=== PATIENT | male | born 1950 | race American Indian/Alaskan Native ===

== ENCOUNTER 2017-02-08 09:32 | Observation (INO) | payer MEDICARE, MEDICAID ==
[2017-02-08 10:06] VITALS: BMI 29.1
[2017-02-08] MEDS ORDERED: SENSORCAINE 0.5% W/EPINEPHRINE 50ML MDV IJ ONE (12:46)
[2017-02-08] MEDS ORDERED: EPINEPHrine 1 mg/ml (1:1000) Inj ONE (12:46)
[2017-02-08] MEDS ORDERED: Bupivacaine 0.5% Inj(30mL) ONE (12:47)
[2017-02-08] MEDS ORDERED: ePHEDrine 50 mg/ml Inj ONE (13:03)
[2017-02-08] MEDS ORDERED: Rocuronium 10 mg/ml (5 ml) ONE (13:03)
[2017-02-08] MEDS ORDERED: Propofol 10 mg/ml Inj (20 ML) ONE (13:03)
[2017-02-08] MEDS ORDERED: Succinylcholine 200 mg/10 ml Inj IV ONE (13:03)
[2017-02-08] MEDS ORDERED: Lactated Ringer's 1,000 ML IV ONE (15:15)
[2017-02-08] MEDS ORDERED: Bupivacaine HCl 0.25% PF (30 ml) Inj ONE (16:00)
[2017-02-08] MEDS ORDERED: Lidocaine Hydrochloride 5 ML INJ ONE (16:39)
[2017-02-08] MEDS ORDERED: HYDROmorphone 0.5 mg/0.5 ml ISec ONE ×2 (16:41→16:53)
[2017-02-08] MEDS: HYDROmorphone 0.5 mg/0.5 ml ISec IVP PRN ×2 (16:41→16:47)
[2017-02-08] MEDS ORDERED: HYDROmorphone 0.5 mg/0.5 ml ISec IVP ONE (16:55)
[2017-02-08] MEDS ORDERED: HYDROmorphone 0.5 mg/0.5 ml ISec IVP STA (17:25)
[2017-02-08] MEDS ORDERED: HYDROmorphone 0.5 mg/0.5 ml ISec IVP PRN ×2 (17:31→19:49)
--- NOTE | 2017-02-08 17:34 | PCM.ANESB4 ---
Infraclavicular Block - Femoral Nerve Block Date of Procedure: 02/08/17 Anesthesiologist: any Pre-Procedure Diagnosis: right triceps tendon tear Post-Procedure Diagnosis: same Procedure Performed: Brachial Plexus at the Infraclavicular area Right - Procedure Infraclavicular Block: The procedure was explained to the patient that it is for the post-operative pain management. Consent was obtained after a thorough discussion with the patient regarding the benefits and possible complications of local anesthetic block of the brachial plexus at the infraclavicular area. The patient was brought to the operating room and standard monitors were applied. Time-out was held with the circulating nurse to confirm the correct surgery and the appropriate block. After applying oxygen by nasal cannula and administering IV Sedation, patient's head was gently rotated away from the operative __right _ shoulder and the area medial to the coracoid process and inferior to the clavicle was carefully palpated. The ultrasound transducer was then applied to the skin in the transverse plane and the brachial plexus was visualized surrounding the axillary artery and deep to the pectoralis major and minor muscles. After thorough identification, this area was prepped with Betadine solution three times and 1 % Lidocaine was injected subcutaneously for topical anesthesia. At this point, a #21 gauge Stimuplex 4-inch needle was inserted cephalad to the ultrasound transducer and inferior to the clavicle in-plane towards the posterior aspect of the axillary artery. Needle advancement was performed carefully under ultrasound visualization. Nerve stimulator was used and twitch of the affected extremity including fingers, hand, wrist and elbow was obtained at current of 0.4 MA. After repeated negative aspiration, __25___cc of ____ 0.25_% __bupivicaine was injected and this was followed with _ cc of % . Under ultrasound guidance the local anesthetics were observed surrounding the cords of the brachial plexus. The needle was removed intact and sterile dressing was applied. The patient had stable vital signs, was conscious and in no apparent distress. The patient tolerated the infraclavicular block of the brachial plexus well with stable vital signs was prepared for subsequent surgery.
[2017-02-08] MEDS ORDERED: Oxycodone/Acetaminophen 5/325 mg Tab PO PRN (17:56)
[2017-02-08] MEDS ORDERED: [UNRECOGNIZED DRUG - OTHER] SCH (18:00)
--- NOTE | 2017-02-08 18:21 | CP.PCM.HP ---
History of Present Illness - History of Present Illness History of Present Illness: CC: s/p shoulder surgery HPI: 66 year old male PMH significant for HTN, CKD, glaucoma, hyperlipidemia, bph, questionable congestive heart failure (per medications), alcohol abuse, presents today s/p elbow tricep repair and ORIF olecranon. Patient did not have support at home tonight, so will stay overnight for safe discharge in AM. ROS: per HPI, all other systems reviewed and negative by me PMD: charted as Dr. hCyna Perdomo, however this office does not have any records of this patient. PMH: HTN, CKD, glaucoma, hyperlipidemia, questionable congestive heart failure ( per medications), alcohol abuse PSH: cystoscopy FH: DENIES SH: Drinks every night, unclear how much, last drink less than 12 hours ago, per patient. Denies tobacco and drugs MEDS: as below and reviewed ALLERGIES: NKDA EXAM: Vitals stable and reviewed Temp Pulse Resp BP Pulse Ox 96.0 F L 67 18 160/90 H 100 02/08/17 18:05 02/08/17 18:05 02/08/17 18:05 02/08/17 18:05 02/08/17 18:05 GEN: WDWN, alert, cooperative HEENT: NCAT, PERRL, EOMI Neck: supple, no lymphadenopathy CARDIO: +S1S2, RRR, NO M/R/G LUNG: CTAB, NO W/R/R ABD: soft, NT, ND, no masses, no HSM EXT: no edema, pedal pulses. Shoulder in dressings cdi. Neuro: AAOx3, Strength equal, bilateral UE/LE Psych: normal mood, normal affect LABS as below and reviewed ASSESSMENT AND PLAN: 66 year old male PMH significant for HTN, CKD, glaucoma, hyperlipidemia, bph, questionable congestive heart failure (per medications), alcohol abuse, presents today s/p elbow tricep repair and ORIF olecranon. Patient did not have support at home tonight, so will stay overnight for safe discharge in AM. s/p tricep repair/ORIF pain control, percocet 1 tab PRN zofran for nausea and emesis dressings per ortho recommendations HTN CHF? Hyperlipidemia CKD stable BPH stable Glaucoma Will continue all home meds as below for above medical issues coreg 6.25 mg po q12 lasix 40 mg po daily lipitor 20 mg po daily norvasc 10 mg po daily glaucoma drops as ordered lisinopril 20 mg po BID per home med dosage and frequency ETOH abuse admits to daily use, wine at night, per chart documentation, also drinks hard liquor thiamine, folic acid, as well as ativan PO 1 mg for any withdrawal symptoms DVT ppx hold AC in light of recent surgery SCDs Present on Admission - Present on Admission Any Indicators Present on Admission: No Past Patient History - Past Medical History & Family History Past Medical History?: Yes - Past Social History Smoking Status: Former Smoker - CARDIAC Hx Cardiac Disorders: Yes Hx Hypercholesterolemia: Yes Hx Hypertension: Yes Hx Mitral Valve Prolapse: Yes - PULMONARY Hx Respiratory Disorders: No - NEUROLOGICAL Hx Neurological Disorder: No - HEENT Hx HEENT Problems: Yes Hx Glaucoma: Yes (bilateral) - RENAL Hx Chronic Kidney Disease: Yes - ENDOCRINE/METABOLIC Hx Endocrine Disorders: No - HEMATOLOGICAL/ONCOLOGICAL Hx Blood Disorders: Yes Hx Blood Transfusions: No Hx Hepatitis C: Yes Other/Comment: ETOH ABUSE;HX OF DRUG ABUSE - INTEGUMENTARY Hx Dermatological Problems: No - MUSCULOSKELETAL/RHEUMATOLOGICAL Hx Musculoskeletal Disorders: Yes Hx Arthritis: Yes Hx Falls: Yes Other/Comment: LEFT HIP STEROID [id number] - GASTROINTESTINAL Hx Gastrointestinal Disorders: No - GENITOURINARY/GYNECOLOGICAL Hx Genitourinary Disorders: Yes Other/Comment: BPH - PSYCHIATRIC Hx Emotional Abuse: No Hx Physical Abuse: No - SURGICAL HISTORY Hx Surgeries: Yes Other/Comment: LEFT EYE SURGERY-ORBIT - ANESTHESIA Hx Anesthesia: Yes Hx Anesthesia Reactions: No Hx Malignant Hyperthermia: No Has any member of the family had a problem w/ anesthesia?: No Meds Allergies/Adverse Reactions: Allergies Allergy/AdvReac Type Severity Reaction Status Date / Time No Known Allergies Allergy Verified 02/08/17 10:05 Results - Vital Signs Recent Vital Signs: Last Vital Signs Temp 98.3 F 02/08/17 10:51 Pulse 66 02/08/17 10:51 Resp 18 02/08/17 10:51 BP 122/86 02/08/17 10:51 Pulse Ox 96 02/08/17 10:51
[2017-02-08] MEDS: ceFAZolin 2 GM in Sodium Chloride 0.9% 100 ML IVPB SCH (20:20)
[2017-02-09] MEDS: ceFAZolin 2 GM in Sodium Chloride 0.9% 100 ML IVPB SCH ×2 (01:03→08:26)
[2017-02-09] MEDS: Oxycodone/Acetaminophen 5/325 mg Tab PO PRN ×2 (02:57→08:22)
[2017-02-09 05:00] VITALS: RESP 20
[2017-02-09 08:09] VITALS: BP 152/87; PULSE 57; TEMP 98.3; O2SAT 98
[2017-02-09] MEDS ORDERED: Timolol 0.25% Ophth SOLN OU SCH (09:00)
[2017-02-09] MEDS ORDERED: Brimonidine 0.2% 50 DROP/5 ML BOTTLE OU SCH (09:00)
[2017-02-09] MEDS ORDERED: Latanoprost 0.005% Opht SOUTION OU SCH (09:00)
--- NOTE | 2017-02-09 09:28 | CP.PCM.DIS ---
Provider - Provider Date of Admission: 02/08/17 17:56 Attending physician: Kaila Brewer DO Primary care physician: NO FAMILY PROVIDER Consults: Dr. Velasquez Orthopedics Time Spent in preparation of Discharge (in minutes): 40 Hospital Course - Hospital Course Hospital Course: 66 year old male (PMHx of HTN, CHF, CKD, HLD, BPH, Glaucoma, ETOH daily) who was admitted on 02/08/17 S/P Right Elbow Triceps Repair with Allograft with Augmentation ORIF Olecranon Fx by Orthopedics Dr. Jesse Velasquez, as he was considered an unsafe discharge as there was no one home. Transportation has been arranged. Patient states that he has all of his home medications and therefore does not need Rx for them. He followed up with his PMD this past Monday for clearance for the aforementioned surgery. He understands to contact Dr. Velasquez for follow up appointment. 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 HEENT: unremarkable Cardio: NS1 and NS2, NO M/R/G Respiratory: CTA B/L, NO R/R/W GI: BS x 4, Soft, NT, ND, NO HSM, NO guarding/rebound tenderness Ext: NO edema, Capillary Refill is 2 seconds, Pulses in Left UE/Bilateral LE are strong and equal. Right arm/palm in ines bandage (fingertips with sensation intact and normal capillary refill Neuro: CN II through XII are grossly intact S/P Right Elbow Triceps Repair with/Allograf w/Augmentation ORIF Olecranon Fx PMHx: HTN, CHF, CKD, HLD, BPH, Glaucoma, ETOH daily The following instructions were explained to patient: 1). Continue your home medications which you stated you had enough of. 2). Call Orthopedics Dr. Velasquez for an appointment at [phone] within [address] Velasquez has provided you with a prescription for Percocet 5/325 mg 1 to 2 tablets by mouth as needed every 4 to 6 hours for severe pain. Please use as directed. 4). Follow up with your Primary Care Physician and [employer] Ordnance[employer] as instructed by them. Conor Serna D.O. Discharge Plan - Follow Up Plan Condition: GOOD Disposition: HOME/ ROUTINE
--- NOTE | 2017-02-13 19:29 | OP ---
PROCEDURE DATE: 02/08/2017 SURGEON: Neel Lacy MD CO-SURGEON: Diana Velasquez MD PROCEDURES: 1. Ulnar and cubital tunnel decompression neurolysis of the right elbow. 2. V-to-Y triceps advancement. 3. Triceps repair with allograft augmentation. 4. Open reduction, internal fixation of olecranon fracture fragment. ANESTHESIA: General with supplemental intravenous sedation. SPECIMENS: None. COMPLICATIONS: None. DRAINS: None. DESCRIPTION OF PROCEDURE: After successful administration of the anesthetic and prophylactic antibiot ics, the patient was placed into a lateral decubitus position and the right upper extremity was prepp ed and draped in standard surgical fashion. A timeout was performed. With a sterile marking pen, a posterior elbow incision was outlined starting from distal 1/3 arm leve l down to the olecranon tip with a slight medial curvature over the olecranon tip area. The incision was made and superficial veins were cauterized. Subcutaneous flaps were developed and elevated. Th e olecranon bursa was identified and excised. Then, work was begun on identifying the ulnar nerve. The roof of the cubital tunnel was identified and exposed. The roof was incised decompressing the ne rve at the site. More proximally, the nerve was thoroughly decompressed through the fascia and throu gh the arcade of Kinsey at the level of the medial arm. The nerve was then thoroughly decompresse d from the arcade of Kinsey, including the 2 heads of the flexor carpi ulnaris. Over the midforea rm, the fasciotomy of this muscle mass was performed, thus alleviating all tension of the structure. The ulnar nerve was then protected throughout the rest of the procedure. Work was then begun on identifying the tear of the distal triceps. There was extensive scar tissue a nd paratenon formation at the rupture site. The paratenon was incised and the proximal tendon was id entified which was markedly proximally scarred in. The tendon edges were debrided and freed from sca r tissue bluntly. Two Allis clamps were placed on the tendon edges to bring it out to length; howeve r, the tendon was still shortened after thorough debridement and scar tissue released. At this time, work was begun on carrying out the V-to-Y transfer of the tendon. The risks of the procedure will be dictated by Dr. Velasquez, who was the primary surgeon for the nex t part of the procedure. Dr. Velasquez is a fellowship trained orthopedic surgeon who was a cosurgeon for this case, whose exp ertise and experience was needed to help with repair of chronically scarred in triceps muscle. Both of the surgeons were scrubbed in throughout the entirety of the case. Neel Lacy M.D. cc: [id number] TT: 02/13/2017 19:28:52 goyo
== END 2017-02-09 13:30 | disposition home or self-care (01) ==
LOC: H.OPSURG 09:32 → H.ERHOLD 17:56 → H.MEDSURG1 19:25
PROVIDERS: ADMIT Student in an Organized Health Care Education/Training Program; ATTEND Student in an Organized Health Care Education/Training Program
DX: S52.021B Displaced fracture of olecranon process without intraarticular extension of right ulna, initial encounter for open fracture type I or II (principal); S46.311A Strain of muscle, fascia and tendon of triceps, right arm, initial encounter; X58.XXXA Exposure to other specified factors, initial encounter; Y93.9 Activity, unspecified; Y92.9 Unspecified place or not applicable; Y99.9 Unspecified external cause status; F10.10 Alcohol abuse, uncomplicated; I12.9 Hypertensive chronic kidney disease with stage 1 through stage 4 chronic kidney disease, or unspecified chronic kidney disease; N18.9 Chronic kidney disease, unspecified; I50.9 Heart failure, unspecified; E78.5 Hyperlipidemia, unspecified; H40.9 Unspecified glaucoma; N40.0 Benign prostatic hyperplasia without lower urinary tract symptoms
CPT/HCPCS: 24340; 24685; 64415; 88304; 88307; 96365; 96366; 96375; C1713; G0378; J0330; J0690; J1170; J1885; J2405; J2704; J3010; J7120; Q4125

== ENCOUNTER 2017-07-13 08:29 | Day surgery (SDC) | payer MEDICARE, MEDICAID ==
[2017-07-10 11:50] VITALS: BMI 28.5
[2017-07-13] MEDS ORDERED: Succinylcholine 200 mg/10 ml Inj IV ONE (08:54)
[2017-07-13] MEDS ORDERED: Propofol 10 mg/ml Inj (20 ML) ONE (08:54)
[2017-07-13] MEDS ORDERED: Rocuronium 10 mg/ml (5 ml) ONE (08:54)
[2017-07-13] MEDS ORDERED: Phenylephrine 10 mg/ml Inj ONE (08:54)
[2017-07-13] MEDS ORDERED: ePHEDrine 50 mg/ml Inj ONE (08:54)
[2017-07-13] MEDS ORDERED: Lactated Ringer's 1,000 ML IV ONE (09:45)
[2017-07-13] MEDS ORDERED: Lidocaine 1% w Epi 1:100,000 Inj ONE (10:05)
[2017-07-13] MEDS ORDERED: Gentamicin 80 mg/2mL Inj. ONE (10:05)
[2017-07-13] MEDS ORDERED: Lidocaine 1% Inj (20ml) ONE (10:06)
[2017-07-13] MEDS ORDERED: Midazolam 2 MG/2 ML VIAL ONE (10:17)
[2017-07-13] MEDS ORDERED: Sodium Chloride 0.9% 500 ML IV ONE (10:20)
[2017-07-13] MEDS ORDERED: Oxycodone/Acetaminophen 5/325 mg Tab PO PRN (11:26)
--- NOTE | 2017-07-13 11:31 | CP.SDSHP ---
Same Day Surgery H & P - History Proposed Procedure: R elbow debridement Pre-Op Diagnosis: R elbow graft rejection/allergic reaction - Allergies Allergies: Allergies naproxen Adverse Reaction (Verified 07/13/17 10:04) ANGIOEDEMA kidneys can't handle it - Physical Exam General Appearance: NAD Vital Signs: Vital Signs 07/13/17 09:38 Temperature 98.1 F Pulse Rate 66 Respiratory 18 Rate Blood Pressure 152/95 H O2 Sat by Pulse 100 Oximetry Mental Status: Alert & Oriented x3 Neuro: WNL Heart: WNL Lungs: WNL GI: WNL - {Optional Preform as Required} Abdomen: WNL Integument: Other (small wound, mild drainage) Ortho: Other (R elbow: small wound opening .5cm with drainage) - Date & Time Date: 07/13/17 Time: 10:00 Short Stay Discharge - Short Stay Discharge Admitting Diagnosis/Reason for Visit: M77.11 Disposition: HOME/ ROUTINE Referrals: FAMILY PROVIDER,NO [Primary Care Provider] - Follow-up: follow up with Dr. Lacy in 1-2 weeks
[2017-07-13] MEDS: HYDROmorphone 0.5 mg/0.5 ml ISec IVP PRN ×4 (11:37→12:00)
[2017-07-13 13:13] VITALS: TEMP 97.5
[2017-07-13] MEDS ORDERED: Oxycodone/Acetaminophen 5/325 mg Tab PO ONE (14:25)
[2017-07-13 14:38] VITALS: BP 152/90; PULSE 62; RESP 18; O2SAT 100
--- NOTE | 2017-07-13 17:00 | PCM.SURG1 ---
Surgeon's Initial Post Op Note - Surgeon's Notes Surgeon: Dr. Lacy Cdl Dedicated Truck Driver: Enzo Brewer PGY2 Type of Anesthesia: General Endo Pre-Operative Diagnosis: R elbow cellulitis Operative Findings: Graft infection, necrotic tissue, adhesions Post-Operative Diagnosis: Allergic reation to tendon graft R elbow Operation Performed: removal of tendon graft and foreign body of R elbow Specimen/Specimens Removed: tendon graft, foreign body Estimated Blood Loss: EBL {In ML}: 5 Blood Products Given: N/A Drains Used: No Drains Post-Op Condition: Good Date of Surgery/Procedure: 07/13/17 Time of Surgery/Procedure: 17:00
--- NOTE | 2017-07-13 21:47 | OP ---
PROCEDURE DATE: 07/13/2017 SURGEON: Neel Lacy MD PREOPERATIVE DIAGNOSES: 1. Right elbow draining sinus. 2. Right elbow foreign body. 3. Allergic reaction. POSTOPERATIVE DIAGNOSES: 1. Right elbow draining sinus. 2. Right elbow foreign body. 3. Allergic reaction. PROCEDURES: 1. Right elbow open debridement of muscle and bone. 2. Right elbow foreign body removal, allograft, and FiberWire sutures. ESTIMATED BLOOD LOSS: None. SPECIMENS: 1. Two wound cultures, inferior and superior. 2. Two tissue samples of one draining sinus tissue and 2 allograft tissue. TYPE OF ANESTHESIA: General. COMPLICATIONS: None. DISPOSITION: Stable to recovery room. INDICATIONS: A 67-year-old male with history of right triceps repair with allograft. The patient developed a draining sinus and continued drainage of his elbow. Initial wound cultures were negative for infection. He was indicated for surgery for wound exploration, debridement, and removal of foreign body. Risk and benefits of the surgery were explained which include but not limited to bleeding, infection, tendon, nerve, vessel injury, instability, and chronic pain but no significant need for additional surgery in the future. The patient understood above the risks and elected to proceed. DESCRIPTION OF PROCEDURE: The patient was brought to the operating room and was given general anesthesia. He was placed in the lateral decubitus position with a quinones bag. After administering prophylactic antibiotics, a nonsteroidal tourniquet was placed in the right upper extremity and the right upper extremity was then prepped and draped in the standard surgical fashion. A timeout was performed. Incision was outlined over the old posterior elbow incision and ellipse around the draining sinus. The arm was elevated and exsanguinated and tourniquet was inflated. Incision was made. The draining sinus was excised in it is entirety and sent for specimen. There was serous drainage deep to the wound. The incision was extended proximally and distally. Deep to the fascial layer, allograft tissue was identified which was detached and the granulation tissue around it for multiple draining sites. This FiberWire sutures were partially detached and loose. The wound was then continuously inspected. The triceps insertion was intact and the triceps had good continuity of the muscle and tendon. We then exposed the allograft tissue and excised it in its entirety. The tissue was sent for specimen. Also loose edges of FiberWire sutures were cut and debrided. Rongeur was used for debridement of soft tissue, muscle, and bone of the olecranon. After this, a post lavage was used of antibiotic solution and 1 L of irrigation was used for debridement of the wound. Prior to this, 2 sample wound cultures were taken to microbiology. Hemostasis was obtained with bipolar cautery. Again the triceps was inspected and was shown to be in continuity without any gaping. The deep layers of the wound were closed with 2-0 Vicryl followed by throughout subcuticular and eden for skin. Sterile dressing was applied. The patient tolerated the procedure well and was extubated and returned to recovery room in excellent condition. The follow up being in 1 week for reevaluation. Neel Lacy MD
== END 2017-07-13 15:05 | disposition home or self-care (01) ==
LOC: H.OPSURG 08:29
PROVIDERS: ATTEND Orthopaedic Surgery
DX: L03.113 Cellulitis of right upper limb (principal); M77.11 Lateral epicondylitis, right elbow; G89.29 Other chronic pain
CPT/HCPCS: 10120; 24358; 87070; 88304; 88307; J0330; J0690; J1170; J1580; J2001; J2250; J2370; J2405; J2704; J3010; J7030; J7040; J7120

== ENCOUNTER 2017-10-09 07:31 | Inpatient (IN) | payer MEDICARE, MEDICAID ==
[2017-07-10 11:50] VITALS: BMI 28.5
--- NOTE | 2017-10-09 08:53 | CP.PCM.HP ---
History of Present Illness - History of Present Illness History of Present Illness: This 59-year-old male past medical history CAD, hypertension, hyperlipidemia, status post treatment with Harvoni in November 2014, glaucoma, cataracts, BPH status post TURP, presenting for left total hip with Dr. Quarles this morning after sustaining a fall approximately 3 months ago. Patient failed outpatient conservative management and treatment. Patient denies any chest pain or dyspnea at rest or on exertion. He has had surgeries in the past and has tolerated anesthesia well. METs greater than 4 as patient is able to walk approximately 4 blocks and uphill with no chest pain or shortness of breath. Patient is low risk for moderate risk surgery and is medically stable for surgery this morning. ROS: per HPI, all other systems reviewed and negative by me PMH: CAD, HTN, CKD, glaucoma, hyperlipidemia, status post treatment with Harvoni in November 2014, glaucoma, cataracts, BPH status post TURP, PSH: cystoscopy orif olecranon TURP FH: DENIES SH: Drinks every night, glass of wine, quit tobacco 1 year ago, former smoker 54 years more on than off appx 1 ppd MEDS: as below and reviewed ALLERGIES: NKDA Physical exam: vitals reviewed Constitutional- cooperative, awake, alert. Head- NCAT, PERRL Eye- PERRL, normal accommodation ENT- normal exam, MMM. Neck- normal inspection, supple, no JVD Respiratory- CTAB, no wheezes rales rhonchi Cardiovascular- RRR, +S1, +S2 no MRG GI/Abdominal- normal bowel sounds, soft, no mass, no hsm Skin- warm, dry Extremities Exam- normal capillary refill, normal inspection Neurological Exam- alert, awake neurovascularly intact Psych- normal mood, normal affect labs reviewed in chart EKG and chest x-ray unremarkable 59-year-old male past medical history CAD, hypertension, hyperlipidemia, status post treatment with Harvoni in November 2014, glaucoma, cataracts, BPH status post TURP, presenting for left total hip with Dr. Quarles this morning after sustaining a fall approximately 3 months ago. Patient failed outpatient conservative management and treatment. Patient denies any chest pain or dyspnea at rest or on exertion. He has had surgeries in the past and has tolerated anesthesia well. METs greater than 4 as patient is able to walk approximately 4 blocks and uphill with no chest pain or shortness of breath. Patient is low risk for moderate risk surgery and is medically stable for surgery this morning. Left total hip secondary to fall failed conservative management for left total hip today with Dr. Willam Thomas total 3 doses Pain per anesthesia PT OT incentive spirometer every hour VTE prophylaxis per orthopedic service Hypertension Hyperlipidemia continue Procardia, lisinopril, Coreg, Statin Glaucoma and cataracts Continue eyedrops Present on Admission - Present on Admission Any Indicators Present on Admission: No Past Patient History - Past Medical History & Family History Past Medical History?: Yes - Past Social History Smoking Status: Never Smoked - CARDIAC Hx Cardiac Disorders: Yes Hx Hypercholesterolemia: Yes Hx Hypertension: Yes Hx Mitral Valve Prolapse: Yes - PULMONARY Hx Respiratory Disorders: No - NEUROLOGICAL Hx Neurological Disorder: No - HEENT Hx HEENT Problems: Yes Hx Glaucoma: Yes - RENAL Hx Chronic Kidney Disease: Yes - ENDOCRINE/METABOLIC Hx Endocrine Disorders: No - HEMATOLOGICAL/ONCOLOGICAL Hx Blood Disorders: No Hx Blood Transfusions: No Hx Blood Transfusion Reaction: No Hx Hepatitis C: Yes Other/Comment: ETOH ABUSE;HX OF DRUG ABUSE - INTEGUMENTARY Hx Dermatological Problems: No - MUSCULOSKELETAL/RHEUMATOLOGICAL Hx Musculoskeletal Disorders: Yes Hx Arthritis: Yes Hx Back Pain: Yes Hx Falls: Yes Other/Comment: limited joint motion - GASTROINTESTINAL Hx Gastrointestinal Disorders: No - GENITOURINARY/GYNECOLOGICAL Hx Genitourinary Disorders: No Other/Comment: BPH - PSYCHIATRIC Hx Emotional Abuse: No Hx Physical Abuse: No - SURGICAL HISTORY Hx Surgeries: Yes Hx Orthopedic Surgery: (R tricep repair elbow 02/08/17) Other/Comment: RIGHT ELBOW SURGERY;LEFT SIDE OF FACE-RECONSTRUCTIVE SURGERY-1981 - ANESTHESIA Hx Anesthesia: Yes Hx Anesthesia Reactions: No Hx Malignant Hyperthermia: No Meds Allergies/Adverse Reactions: Allergies Allergy/AdvReac Type Severity Reaction Status Date / Time naproxen AdvReac ANGIOEDEMA Verified 07/13/17 10:04 Results - Vital Signs Recent Vital Signs: Last Vital Signs Temp 98.7 F 10/09/17 07:44 Pulse 66 10/09/17 08:15 Resp 20 10/09/17 07:44 BP 165/93 H 10/09/17 07:44 Pulse Ox 97 10/09/17 07:44 - Labs Labs: Laboratory Results - last 24 hr 10/09/17 08:00 Crossmatch See Detail BBK History Checked No verified bt
[2017-10-09] MEDS ORDERED: SENSORCAINE 0.5% W/EPINEPHRINE 50ML MDV IJ ONE (10:56)
[2017-10-09] MEDS ORDERED: Rocuronium 10 mg/ml (5 ml) ONE ×3 (11:05→12:57)
[2017-10-09] MEDS ORDERED: Lidocaine 4% (Laryng-O-Jet) Kit MM ONE (11:05)
[2017-10-09] MEDS ORDERED: Succinylcholine 200 mg/10 ml Inj IV ONE (11:05)
[2017-10-09] MEDS ORDERED: Phenylephrine 10 mg/ml Inj ONE (11:08)
[2017-10-09] MEDS ORDERED: Bupivacaine 0.5% Inj(30mL) ONE (11:09)
[2017-10-09] MEDS ORDERED: Lidocaine 1% Inj (20ml) ONE (11:09)
[2017-10-09] MEDS ORDERED: Thrombin Topical 5,000 IU Spray Kit ONE (11:09)
[2017-10-09] MEDS ORDERED: Absorbable Gelatin Sponge Size 100 ONE (11:09)
[2017-10-09] MEDS ORDERED: Etomidate 20 mg/10ml Inj IV ONE (11:12)
[2017-10-09] MEDS ORDERED: ceFAZolin IV 1 gm in Dextrose 2 GM/100 ML BAG IVPB ONE (11:17)
--- NOTE | 2017-10-09 11:18 | CARD ---
APPROVED REPORT EKG Measurement Heart [id number] <Conclusion> Normal sinus rhythm Possible Left atrial enlargement Left ventricular hypertrophy Abnormal ECG
[2017-10-09] MEDS ORDERED: Morphine 1 mg/ml preservative-free Inj(Duramorph) ONE (11:19)
[2017-10-09] MEDS ORDERED: Midazolam 2 MG/2 ML VIAL ONE (11:19)
[2017-10-09] MEDS ORDERED: EPINEPHrine 1 mg/ml (1:1000) Inj ONE (11:24)
[2017-10-09] MEDS ORDERED: Lactated Ringer's 1,000 ML IV ONE (11:30)
[2017-10-09] MEDS ORDERED: Sodium Chloride 0.9% 500 ML IV ONE (11:45)
[2017-10-09] MEDS ORDERED: Desflurane Inhalation Anesthetic Liq (240 ml) ONE (12:20)
[2017-10-09] MEDS ORDERED: Bisacodyl 5mg EC Tab PO PRN (12:35)
[2017-10-09] MEDS ORDERED: Oxycodone/Acetaminophen 5/325 mg Tab PO PRN (12:35)
[2017-10-09] MEDS ORDERED: ceFAZolin IV 1 gm in Dextrose 1 GM/50 ML BAG IVPB SCH (12:45)
[2017-10-09] MEDS ORDERED: Latanoprost 0.005% Opht SOUTION OU SCH (12:45)
--- NOTE | 2017-10-09 14:30 | PCM.ANESB3 ---
Femoral Nerve Block - Femoral Nerve Block Date of Procedure: 10/09/17 Anesthesiologist: Carlos Pre-Procedure Diagnosis: Left hip OA Post-Procedure Diagnosis: Same Procedure Performed: Femoral Nerve Block Left - Procedure Femoral Nerve Block: The procedure was explained to the patient that it is for the post-operative pain management. Consent was obtained after a thorough discussion with the patient regarding the benefits and possible complications of local anesthetic block of the femoral nerve at the inguinal crease area. The patient was brought to the operating room and standard monitors were applied. Time-out was held with the circulating nurse to confirm the correct surgery and the appropriate block. Under general anesthesia, patient was placed in supine position with fully extended lower extremities and the ___left groin exposed. The femoral artery was then carefully palpated. The ultrasound transducer was then applied to this area in the transverse plane and the femoral nerve was visualized lateral to the femoral artery and underneath the fascia iliaca. After thorough identification, the inguinal crease area was prepped with Chloraprep. At this point, a #22 gauge Stimuplex 2-inch needle was inserted immediately lateral to the femoral artery pulse at the inguinal crease and advanced perpendicularly. The needle was inserted to the ultrasound transducer in-plane towards the femoral nerve in a [id number] direction. Needle advancement was performed carefully under direct ultrasound visualization. Nerve stimulator was used and twitch of the quadriceps muscle was obtained at current of _0.4____ MA. After negative aspiration, ___2__cc of _0.25____% ___bupivicaine with 1:200, 000 epinephrine was injected and this was followed with ___38__ _ cc of __0.25 % ____bupivicaine with 1:200,000 epinephrine . Under ultrasound guidance the local anesthetics were observed spreading below fascia iliaca and around the femoral nerve. The needle was removed intact. The patient tolerated the femoral nerve block well with stable vital signs and was prepared for subsequent surgery.
[2017-10-09] MEDS ORDERED: HEMOSTATIC MATRIX 10 ML DIS.NEEDLE TOP ONE (15:30)
[2017-10-09] MEDS ORDERED: Neostigmine Methylsulfate 3mg/3ml Syringe IV ONE (15:32)
[2017-10-09] MEDS ORDERED: Neostigmine Methylsulfate 2 MG/2 ML ML IV ONE (15:32)
[2017-10-09] MEDS ORDERED: Bacitracin Ointment 30 GM TUBE ONE (15:56)
--- NOTE | 2017-10-09 17:14 | RAD ---
PROCEDURE: Left Hip X-ray Radiographs. HISTORY: s/p anterior left hip replacement COMPARISON: Portable left hip and pelvis 10/09/2017. FINDINGS: BONES: Post left replacement unchanged in appearance with skin eden again seen at the lateral hip soft tissues and postop changes are seen lateral to the greater trochanter left hip. No interval fracture dislocation with the pelvic ring appearing stable in the interval. JOINTS: As above SOFT TISSUES: As above OTHER FINDINGS: None. IMPRESSION: Stable left total hip replacement hardware as discussed above with no dislocation or interval fracture appreciable. Postop changes as described above as well.
--- NOTE | 2017-10-09 17:21 | RAD ---
PROCEDURE: Intraoperative Fluoroscopy. HISTORY: LEFT HIP FINDINGS: Fluoroscopic assistance was provided for left total hip replacement. seconds of fluoro time was utilized with a total DLP dose of 1.79 mGy.
[2017-10-09] MEDS: HYDROmorphone 0.5 mg/0.5 ml ISec IVP PRN ×2 (17:25→17:40)
--- NOTE | 2017-10-09 18:01 | PCM.SURG1 ---
Surgeon's Initial Post Op Note - Surgeon's Notes Surgeon: Willam Supervisor Insecticide: ANDRY Tang/2nd assist Type of Anesthesia: General Endo (Valente), Spinal, Block Regional Anesthesia Administered By: DR Gonzalez Pre-Operative Diagnosis: severe Primary O/A L hip. deformity/R/O AVN L hip Operative Findings: Severe Primary O/A L hip. severe synovits L hip. iliopsoas contracture. leg length inequality L hip(L,R= approx5/8") Post-Operative Diagnosis: as above Operation Performed: L THR. femoral neck osteotomy. arthrotomy/synovectomy L hip. release iliopsoas tendon. autograft bone graft. computer navigation Specimen/Specimens Removed: femroal head. synovium Estimated Blood Loss: EBL {In ML}: 300 Blood Products Given: N/A Drains Used: No Drains Post-Op Condition: Good Date of Surgery/Procedure: 10/09/17 Time of Surgery/Procedure: 12:45 (time in room/anaesthesia indcution time 11:15)
[2017-10-09] MEDS: ceFAZolin IV 1 gm in Dextrose 1 GM/50 ML BAG IVPB SCH ×2 (21:48→21:54)
[2017-10-09] MEDS: Brimonidine 0.2% 50 DROP/5 ML BOTTLE OU SCH (21:53)
[2017-10-10] MEDS ORDERED: Lactated Ringer's 1,000 ML IV SCH (00:45)
[2017-10-10] MEDS: Latanoprost 0.005% Opht SOUTION OU SCH ×2 (01:13→22:21)
[2017-10-10] MEDS: ceFAZolin IV 1 gm in Dextrose 1 GM/50 ML BAG IVPB SCH ×3 (05:30→20:56)
[2017-10-10 06:35] LABS: CALCIUM 8.2 mg/dL (8.4-10.2); POTASSIUM 4.6 MMOL/L (3.6-5.0)
[2017-10-10 06:51] LABS: HEMATOCRIT 31.2 % (35.0-51.0); MEAN CELL VOLUME 98.6 fl (80.0-94.0); MEAN CORPUSCULAR HEMOGLOBIN 32.5 pg (27.0-31.0); RED CELL DISTRIBUTION WIDTH 14.3 % (11.5-14.5); WHITE BLOOD COUNT 6.9 K/uL (4.8-10.8)
[2017-10-10] MEDS: Timolol 0.25% Ophth SOLN OD SCH ×2 (08:15→16:30)
[2017-10-10] MEDS: Brimonidine 0.2% 50 DROP/5 ML BOTTLE OU SCH ×2 (08:17→16:29)
[2017-10-10] MEDS: NIFEdipine 60 mg ER Tab PO SCH (08:19)
--- NOTE | 2017-10-10 11:24 | CP.PCM.CON ---
History of Present Illness - History of Present Illness History of Present Illness: THE PATIENT IS A 67 YEAR OLD MALE WHO WHO WAS ADMITTED YESTERDAY AND UNDERWENT A LEFT THR. HE STATES THAT HE HAS SEVERE OA AND FELL LAST YEAR AND DISLOCATED HIS LEFT HIP AND HAD A PELVIC FRACTURE. THE LEFT HIP DISLOCATION WAS PUT BACK IN PACE AND HE WENT TO REHAB FOR IT AND THE PELVIC FRACTURE. HE NOW HAD SEVERE PAIN IN THE LEFT HIP THAT FAILED CONSERVATIVE TREATMENT AND HE HAD DIFFICULTY WALKING SO IT WAS DECIDED TO PROCEED TO A LEFT TOTAL HIP REPLACEMENT. HE ALSO HAS A HISTORY OF HYPERTENSION, HYPERLIPIDEMIA, MITRAL VALVE PROLAPSE AND STAGE 3 CRF. HE DENIES CORONARY ARTERY DISEASE TO ME AND DENIES ANY HISTORY OF ANGINA OR AN NM IN THE PAST. CARDIOLOGY WAS ASKED BY DR STRICKLAND TO SEE AND FOLLOW HIM ON THIS ADMISSION. Past Patient History - Past Medical History & Family History Past Medical History?: Yes - Past Social History Smoking Status: Never Smoked - CARDIAC Hx Cardiac Disorders: Yes Hx Hypercholesterolemia: Yes Hx Hypertension: Yes Hx Mitral Valve Prolapse: Yes - PULMONARY Hx Respiratory Disorders: No - NEUROLOGICAL Hx Neurological Disorder: No - HEENT Hx HEENT Problems: Yes Hx Glaucoma: Yes - RENAL Hx Chronic Kidney Disease: Yes - ENDOCRINE/METABOLIC Hx Endocrine Disorders: No - HEMATOLOGICAL/ONCOLOGICAL Hx Blood Disorders: No Hx Blood Transfusions: No Hx Blood Transfusion Reaction: No Hx Hepatitis C: Yes Other/Comment: ETOH ABUSE;HX OF DRUG ABUSE - INTEGUMENTARY Hx Dermatological Problems: No - MUSCULOSKELETAL/RHEUMATOLOGICAL Hx Musculoskeletal Disorders: Yes Hx Arthritis: Yes Hx Back Pain: Yes Hx Falls: Yes Other/Comment: limited joint motion - GASTROINTESTINAL Hx Gastrointestinal Disorders: No - GENITOURINARY/GYNECOLOGICAL Hx Genitourinary Disorders: No Other/Comment: BPH - PSYCHIATRIC Hx Emotional Abuse: No Hx Physical Abuse: No - SURGICAL HISTORY Hx Surgeries: Yes Hx Orthopedic Surgery: (R tricep repair elbow 02/08/17) Other/Comment: RIGHT ELBOW SURGERY;LEFT SIDE OF FACE-RECONSTRUCTIVE SURGERY-1980 - ANESTHESIA Hx Anesthesia: Yes Hx Anesthesia Reactions: No Hx Malignant Hyperthermia: No Meds Allergies/Adverse Reactions: Allergies Allergy/AdvReac Type Severity Reaction Status Date / Time naproxen AdvReac ANGIOEDEMA Verified 07/13/17 10:04 - Medications Medications: Current Medications Atorvastatin Calcium (Lipitor) 10 mg PO DAILY [facility] Last Admin: 10/10/17 08:17 Dose: 10 mg Bisacodyl (Dulcolax) 10 mg PO DAILY PRN PRN Reason: Constipation Brimonidine Tartrate (Alphagan 0.2% Opht) 1 drop OU BID [facility] Last Admin: 10/10/17 08:17 Dose: 1 unit Carvedilol (Coreg) 6.25 mg PO BID [facility] Last Admin: 10/10/17 08:14 Dose: 6.25 mg Docusate Sodium (Colace) 100 mg PO BID [facility] Last Admin: 10/10/17 08:13 Dose: 100 mg Enoxaparin Sodium (Lovenox) 30 mg SC DAILY [facility] PRN Reason: Protocol Hydromorphone HCl (Dilaudid 0.2 Mg/Ml Electronic Organ Technician) 0 mg IV PRN PRN; Protocol PRN Reason: Pain, severe (8-10) Last Admin: 10/09/17 19:20 Dose: 0 mg Cefazolin Sodium/Dextrose (Ancef Iv 1 Gm Duplex) 1 gm in 50 mls @ 50 mls/hr IVPB Q8@0430,1230,2030 [facility] PRN Reason: Protocol Last Admin: 10/10/17 05:30 Dose: 50 mls/hr Lactated Ringer's (Lactated Ringer's) 1,000 mls @ 100 mls/hr IV .Q10H [facility] Last Admin: 10/10/17 01:12 Dose: Not Given Latanoprost (Xalatan Opht) 1 drop OU HS [facility] Last Admin: 10/10/17 01:13 Dose: Not Given Lisinopril (Zestril) 20 mg PO BID [facility] Last Admin: 10/10/17 08:14 Dose: 20 mg Nifedipine (Procardia Xl) 60 mg PO DAILY [facility] Last Admin: 10/10/17 08:19 Dose: 60 mg Ondansetron HCl (Zofran Inj) 4 mg IVP Q6 PRN PRN Reason: Nausea/Vomiting Last Admin: 10/09/17 22:37 Dose: 4 mg Oxycodone/Acetaminophen (Percocet 5/325 Mg Tab) 1 tab PO Q4 PRN PRN Reason: Pain, moderate (4-7) Stop: 10/12/17 12:36 Timolol Maleate (Timoptic 0.25% Ophth Soln) 1 drop OD BID [facility] Last Admin: 10/10/17 08:15 Dose: 1 drop Physical Exam - Respiratory Exam Respiratory Exam: Clear to Auscultation Bilateral - Cardiovascular Exam Cardiovascular Exam: REGULAR RHYTHM, +S1, +S2 Results - Vital Signs Recent Vital Signs: Last Vital Signs Temp 99.2 F 10/10/17 07:45 Pulse 85 10/10/17 08:19 Resp 20 10/10/17 07:45 BP 125/82 10/10/17 08:19 Pulse Ox 99 10/10/17 07:45 - Labs Result Diagrams: 10/10/17 06:05 10/10/17 06:05 Labs: Laboratory Results - last 24 hr 10/10/17 10/10/17 06:05 06:05 WBC 6.9 RBC 3.17 L Hgb 10.3 L Hct 31.2 L MCV 98.6 H MCH 32.5 H MCHC 33.0 RDW 14.3 Plt Count 128 L Sodium 138 Potassium 4.6 Chloride 106 Carbon Dioxide 25 Anion Gap 11 BUN 31 H Creatinine 1.9 H Est GFR ( Amer) 43 Est GFR (Non-Af Amer) 35 Random Glucose 115 H Calcium 8.2 L Assessment & Plan - Assessment and Plan (Free Text) Assessment: S/P LEFT THR HYPERTENSION HYPERLIPIDEMIA MITRAL VALVE PROLAPSE STAGE 3 CRF Plan: CONTINUE CARVEDILOL, LISINOPRIL, NIFEDIPINE, ATORVASTATIN AND LOVENOX FOR PHYSICAL THERAPY
[2017-10-10] MEDS: Enoxaparin 30 mg Syringe SC SCH (12:27)
--- NOTE | 2017-10-10 15:17 | CP.PCM.PN ---
<Emma Chakraborty - Last Filed: 10/10/17 16:19> Subjective - Date & Time of Evaluation Date of Evaluation: 10/10/17 Time of Evaluation: 11:00 - Subjective Subjective: Hospitalist Consult Note 59 year old male patient seen at bedside POD#1 left total hip replacement. Patient seen out of bed and in chair, hemodynamically stable and NAD. Patient admits to feeling light headed currently. Patient reports moderate soreness to surgical site. Patient states he is using the incentive spirometer every hour. Patient states he experienced nausea and 1 episode of vomiting last night after surgery; admits that he is feeling better today with no current N/V. Patient states he worked with physical therapy prior to this visit and was able to ambulate without any issues. Patient admits that he had a hard time urinating last night - per nursing catheter was placed overnight which drained 800cc clear yellow urine. Patient continuing to have difficulty with urination this morning. Patient also admits that he has yet to have a BM. Patient denies fever , diarrhea, chills, SOB, calf pain, palpitations. Objective - Vital Signs/Intake and Output Vital Signs (last 24 hours): Temp Pulse Resp BP Pulse Ox 99.2 F 85 20 125/82 99 10/10/17 07:45 10/10/17 08:19 10/10/17 07:45 10/10/17 08:19 10/10/17 07:45 - Medications Medications: Current Medications Atorvastatin Calcium (Lipitor) 10 mg PO DAILY [facility] Last Admin: 10/10/17 08:17 Dose: 10 mg Bisacodyl (Dulcolax) 10 mg PO DAILY PRN PRN Reason: Constipation Brimonidine Tartrate (Alphagan 0.2% Opht) 1 drop OU BID [facility] Last Admin: 10/10/17 08:17 Dose: 1 unit Carvedilol (Coreg) 6.25 mg PO BID [facility] Last Admin: 10/10/17 08:14 Dose: 6.25 mg Docusate Sodium (Colace) 100 mg PO BID [facility] Last Admin: 10/10/17 08:13 Dose: 100 mg Enoxaparin Sodium (Lovenox) 30 mg SC DAILY [facility] PRN Reason: Protocol Last Admin: 10/10/17 12:27 Dose: 30 mg Hydromorphone HCl (Dilaudid 0.2 Mg/Ml Vp Hr Diversity) 0 mg IV PRN PRN; Protocol PRN Reason: Pain, severe (8-10) Last Admin: 10/09/17 19:20 Dose: 0 mg Cefazolin Sodium/Dextrose (Ancef Iv 1 Gm Duplex) 1 gm in 50 mls @ 50 mls/hr IVPB Q8@0430,1230,2030 [facility] PRN Reason: Protocol Last Admin: 10/10/17 12:28 Dose: 50 mls/hr Lactated Ringer's (Lactated Ringer's) 1,000 mls @ 100 mls/hr IV .Q10H [facility] Last Admin: 10/10/17 01:12 Dose: Not Given Latanoprost (Xalatan Opht) 1 drop OU HS [facility] Last Admin: 10/10/17 01:13 Dose: Not Given Lisinopril (Zestril) 20 mg PO BID [facility] Last Admin: 10/10/17 08:14 Dose: 20 mg Nifedipine (Procardia Xl) 60 mg PO DAILY [facility] Last Admin: 10/10/17 08:19 Dose: 60 mg Ondansetron HCl (Zofran Inj) 4 mg IVP Q6 PRN PRN Reason: Nausea/Vomiting Last Admin: 10/09/17 22:37 Dose: 4 mg Oxycodone/Acetaminophen (Percocet 5/325 Mg Tab) 1 tab PO Q4 PRN PRN Reason: Pain, moderate (4-7) Stop: 10/12/17 12:36 Timolol Maleate (Timoptic 0.25% Ophth Soln) 1 drop OD BID [facility] Last Admin: 10/10/17 08:15 Dose: 1 drop - Labs Labs: 10/10/17 06:05 10/10/17 06:05 - Constitutional Appears: Well, Non-toxic, No Acute Distress - Head Exam Head Exam: ATRAUMATIC, NORMAL INSPECTION, NORMOCEPHALIC - Eye Exam Eye Exam: EOMI, Normal appearance, PERRL Pupil Exam: NORMAL ACCOMODATION - ENT Exam ENT Exam: Mucous Membranes Moist, Normal Exam, Normal External Ear Exam - Neck Exam Neck Exam: Full ROM, Normal Inspection. absent: Tenderness - Respiratory Exam Respiratory Exam: Clear to Ausculation Bilateral, NORMAL BREATHING PATTERN. absent: Rales, Rhonchi, Wheezes, Respiratory Distress - Cardiovascular Exam Cardiovascular Exam: REGULAR RHYTHM, +S1, +S2. absent: Murmur - GI/Abdominal Exam GI & Abdominal Exam: Soft, Normal Bowel Sounds. absent: Tenderness - Rectal Exam Rectal Exam: Deferred - Extremities Exam Extremities Exam: Normal Capillary Refill. absent: Calf Tenderness, Pedal Edema , Tenderness Additional comments: Dressing to left hip appears clean/dry/intact with no strikethrough noted - Back Exam Back Exam: NORMAL INSPECTION. absent: tenderness - Neurological Exam Neurological Exam: Alert, Awake, CN II-XII Intact, Oriented x3 - Psychiatric Exam Psychiatric exam: Normal Affect, Normal Mood - Skin Skin Exam: Dry, Intact, Normal Color, Warm Assessment and Plan - Assessment and Plan (Free Text) Assessment: 59 year old male patient PMHx CAD, HTN, HLD, glaucoma, cataracts POD#1 left total hip replacement (1) Osteoarthritis left hip Failed conservative management Left THR with Dr. Quarles yesterday, 10/09/17 Pain mgmt per anesthesia -Received left femoral nerve block Ancef 1g q8 H/H = 10.3/31.2 Continue PT/OT Continue incentive spirometer every hour Dispo planning: recommend TCU (2) Hypertension Continue Coreg, Lisinopril, Nifedipine (3) Hyperlipidemia Continue Lipitor (4) DVT prophylaxis VTE prophylaxis per orthopedic service Lovenox SCDs Glaucoma and cataracts Continue eyedrops <Kaila Brewer - Last Filed: 10/10/17 18:00> Objective - Vital Signs/Intake and Output Vital Signs (last 24 hours): Temp Pulse Resp BP Pulse Ox 101.4 F H 96 H 20 149/90 99 10/10/17 16:36 10/10/17 16:36 10/10/17 16:36 10/10/17 16:36 10/10/17 16:36 - Medications Medications: Current Medications Atorvastatin Calcium (Lipitor) 10 mg PO DAILY [facility] Last Admin: 10/10/17 08:17 Dose: 10 mg Bisacodyl (Dulcolax) 10 mg PO DAILY PRN PRN Reason: Constipation Brimonidine Tartrate (Alphagan 0.2% Opht) 1 drop OU BID [facility] Last Admin: 10/10/17 16:29 Dose: 1 unit Carvedilol (Coreg) 6.25 mg PO BID [facility] Last Admin: 10/10/17 16:30 Dose: 6.25 mg Docusate Sodium (Colace) 100 mg PO BID [facility] Last Admin: 10/10/17 16:30 Dose: 100 mg Enoxaparin Sodium (Lovenox) 30 mg SC DAILY [facility] PRN Reason: Protocol Last Admin: 10/10/17 12:27 Dose: 30 mg Cefazolin Sodium/Dextrose (Ancef Iv 1 Gm Duplex) 1 gm in 50 mls @ 50 mls/hr IVPB Q8@0430,1230,2030 [facility] PRN Reason: Protocol Last Admin: 10/10/17 12:28 Dose: 50 mls/hr Lactated Ringer's (Lactated Ringer's) 1,000 mls @ 100 mls/hr IV .Q10H [facility] Last Admin: 10/10/17 01:12 Dose: Not Given Latanoprost (Xalatan Opht) 1 drop OU HS [facility] Last Admin: 10/10/17 01:13 Dose: Not Given Lisinopril (Zestril) 20 mg PO BID [facility] Last Admin: 10/10/17 16:28 Dose: 20 mg Nifedipine (Procardia Xl) 60 mg PO DAILY [facility] Last Admin: 10/10/17 08:19 Dose: 60 mg Ondansetron HCl (Zofran Inj) 4 mg IVP Q6 PRN PRN Reason: Nausea/Vomiting Last Admin: 10/09/17 22:37 Dose: 4 mg Oxycodone/Acetaminophen (Percocet 5/325 Mg Tab) 1 tab PO Q4 PRN PRN Reason: Pain, moderate (4-7) Stop: 10/12/17 12:36 Timolol Maleate (Timoptic 0.25% Oph Soln) 1 drop OD BID [facility] Last Admin: 10/10/17 16:30 Dose: 1 drop - Labs Labs: 10/10/17 06:05 10/10/17 06:05 Attending/Attestation - Attestation I have personally seen and examined this patient.: Yes I have fully participated in the care of the patient.: Yes I have reviewed all pertinent clinical information, including history, physical exam and plan: Yes Notes (Text): 10/10/17 18:00 Seen, examined, and discussed with Resident Dr. Chakraborty. Agree with findings and plan as above.
[2017-10-11 01:17] VITALS: O2SAT 100
[2017-10-11] MEDS: ceFAZolin IV 1 gm in Dextrose 1 GM/50 ML BAG IVPB SCH ×2 (03:50→12:40)
[2017-10-11 07:53] VITALS: PULSE 84; RESP 20; TEMP 99
[2017-10-11] MEDS: Enoxaparin 30 mg Syringe SC SCH (08:00)
[2017-10-11] MEDS: NIFEdipine 60 mg ER Tab PO SCH (08:01)
[2017-10-11] MEDS: Brimonidine 0.2% 50 DROP/5 ML BOTTLE OU SCH ×2 (08:02→16:10)
[2017-10-11] MEDS: Timolol 0.25% Ophth SOLN OD SCH ×2 (08:02→16:10)
--- NOTE | 2017-10-11 08:56 | OP ---
PROCEDURE DATE: 10/09/17 PREOPERATIVE DIAGNOSES: Severe osteoarthritis left hip with leg-length inequality, left less than right by approximately 1/2 inch. POSTOPERATIVE DIAGNOSES: Severe osteoarthritis left hip with leg-length inequality, left less than right by approximately 1/2 inch. PROCEDURE: 1. Left total hip replacement arthroplasty, anterior approach. 2. Femoral neck osteotomy preoperative and intraoperative planning to correct leg length inequality. 3. Arthrotomy and synovectomy. 4. Release iliopsoas tendon. 5. Autograft bone grafting. 6. Computer navigation. SURGEON: Geovanni Quarles MD DIRECTOR FINANCIAL PLANNING: MAHENDRA Sharma, certified registered nursing assistant project manager. ANESTHESIA: Spinal and general. ANESTHESIA: Nayan Gonzalez MD COMPLICATIONS: None. DRAINS: None. BLOOD LOSS: 300 mL. OPERATIVE INDICATIONS: Kobe Alcantar is the gentleman who has severe left hip pain with no evidence of a low back pain or sciatica. The patient has marked gait disturbance has been refractory. The conservative approach was referred from an orthopedic surgeon. The patient presents for left total hip replacement arthroplasty. Pros, cons, risks and benefits were discussed. Possibility of mechanical failure, infection, thromboembolic disease, secondary or tertiary surgery was discussed. Possibility of nerve injury and leg length inequality is discussed. OPERATIVE PROCEDURE: After having obtained informed consent and after having identified side, site and procedure and critical pause/time-out. After the satisfactory induction of the anesthetic, spinal and general. The patient identified as Kobe Alcantar. He was displaced the supine position with all bony prominences well padded. The patient is placed in the [facility] traction positioner. Under the surgeon's direction, the fluoroscope was positioned. A video images were generated, therapeutic decisions were made therefrom. There is evidence of a leg length inequality between and a half inch on the left, left less than right. After having prepped and draped and after having identified side, site and procedure and critical pause/time-out satisfactory induction of the anesthetic. The patient identified as Kobe Alcantar in the supine position with all bony prominence well padded. The left lower extremity is prepped and draped in usual fashion for anterior approach total hip replacement arthroplasty. The right iliac crest was prepped as well. Two stab incisions were made into the K-wires were introduced. Two supporting screws were introduced into the iliac wing. The camera is placed to aid the accelerometer navigation. This having been accomplished, the wound was thoroughly irrigated, and compression was applied. Attention was turned to the left hip. Again after having identified side, site and procedure and critical pause/time-out, the patient identified as Kobe Alcantar in the supine position with all bony prominences well padded. The left lower extremity was prepped and free draped in usual fashion for extremity surgery. A 5-inch incision was described one fingerbreadth distal to the ASIS. Three fingerbreadths posteriorly. Superficial to the tensor fascia femoris muscle. The skin incision is carried down through the skin and subcutaneous tissue. The fascia was divided and was grasped using the Allis clamp. The muscle was taken down. The interval was identified and the Medacta was placed. The posterior aspect of the fascia on the rectus femoris was identified that is carefully divided. The Medacta was placed deeper retractor and the fascia was identified with the leg and external rotation. The reflected head of rectus femoris was identified and was carefully divided. Hemostasis controlled. At this point in time with the leg internally rotated the rectus femoris was released. The fascia was divided. The lateral femoral circumflex vessels and the anterior branch of the lateral femoral circumflex vessels were identified and controlled with cautery and suture ligature and Aquamantys. Hemostasis at this point had been controlled with Aquamantys. The capsulotomy was accomplished with the lower extremity now in external rotation. The intertrochanteric tube were both identified. The capsule was elevated intact. This having been accomplished, the anterior aspect of the greater trochanter is identified and the disc is placed. At this point in time, the ASIS is registered on the left and right and at this point, the femoral disc is identified and registered using the probe which is communicating with the optical camera. This having been accomplished, the wound was thoroughly irrigated with to lengthening the lower extremity. The femoral neck osteotomy was accomplished. Great care was taken not to involve the greater trochanter. This having been accomplished, the head is removed with external rotation of the lower extremity. The head was removed with corkscrew after having identified the center of rotation. This having been accomplished. The center of rotation having identified. The femoral head was removed and the synovium arthrotomy and synovectomy is accomplished. It should be noted that great care was taken to plan in real time during surgery and preoperatively. This having been accomplished, the pulvinar was excised. Arthrotomy and synovectomy of the hip was accomplished. A portion of the reflected head of rectus femoris which is residual was removed. The Medacta retractor was placed reaming commences up to 52-mm reamer both medially posteriorly and in the plane of reaming. A trial was placed and found to be approximately 41 degrees of abduction, 20 degrees of anteversion. This having been accomplished, the wound was thoroughly irrigated. The pulvinar was excised. The cut femoral neck was identified with external rotation. The pubofemoral ligament was identified and released. It should be noted that after trialing autograft and bone grafting from the reaming was in the acetabulum. Denuded of articular cartilage were used to bone graft the acetabulum. The permanent cup was placed in approximately 41 degrees of abduction and 20 degrees of anteversion. This having been accomplished. The cup having been placed was found to be stable. Attention was turned to the femur. The pubofemoral, ischial femoral and iliofemoral ligaments are released. The wound was thoroughly irrigated. The ligaments were released and with external rotation of the femur. The iliopsoas was found to be contracted and there is release of the iliopsoas tendon taking great care to avoid injury to any neurocirculatory structures. The femur was extended and with further external rotation and adduction. The femur was identified. The bridge of bone between the neck of the trochanter was removed. The canal was found using the rasp and this having been accomplished. Sequential broaching was carried down to a #3 femoral component. Trialing was accomplished with a #7. A 54 head was found to be unstable and that the hip was found to be a short of the goal of leg-length inequality. At this point in time, trialing was accomplished with plus 10. The hip was found to be stable. The wound is thoroughly irrigated. At this point in time, the #3 Medacta femoral component was impacted. The mm outer bearing. The hip was reduced, found to be stable in all planes. The wound was thoroughly irrigated. This having been accomplished, hemostasis controlled with the Aquamantys and with FloSeal. It should be noted that the registration of the femoral disc and the leg length showed that there was 7 mm of leg lengthening on the involved side with acceptable position of the offset. This having been accomplished, the hip mechanics was found to be acceptable. The wound was thoroughly irrigated. The capsule was replaced. Closures in layers with 0 Quill for the facia. 0 Quill eden for skin. Compression dressing was applied. Postoperative x-rays reveals excellent position of the construct. Geovanni Quarles MD
[2017-10-11] MEDS ORDERED: Oxycodone/Acetaminophen 5/325 mg Tab ONE (09:09)
--- NOTE | 2017-10-11 14:16 | CP.PCM.PN ---
Subjective - Date & Time of Evaluation Date of Evaluation: 10/11/17 Time of Evaluation: 11:35 Objective - Vital Signs/Intake and Output Vital Signs (last 24 hours): Temp Pulse Resp BP Pulse Ox 99 F 84 20 127/85 100 10/11/17 07:53 10/11/17 08:02 10/11/17 07:53 10/11/17 08:02 10/11/17 07:53 - Medications Medications: Current Medications Acetaminophen (Tylenol 325mg Tab) 650 mg PO Q6 PRN PRN Reason: Pain, moderate (4-7) Last Admin: 10/11/17 03:49 Dose: 650 mg Alprazolam (Xanax) 1 mg PO DAILY [facility] Atorvastatin Calcium (Lipitor) 10 mg PO DAILY [facility] Last Admin: 10/11/17 08:03 Dose: 10 mg Bisacodyl (Dulcolax) 10 mg PO DAILY PRN PRN Reason: Constipation Brimonidine Tartrate (Alphagan 0.2% Opht) 1 drop OU BID [facility] Last Admin: 10/11/17 08:02 Dose: 1 unit Buspirone HCl (Buspar) 7.5 mg PO DAILY [facility] Carvedilol (Coreg) 6.25 mg PO BID [facility] Last Admin: 10/11/17 08:01 Dose: 6.25 mg Docusate Sodium (Colace) 100 mg PO BID [facility] Last Admin: 10/11/17 08:00 Dose: 100 mg Enoxaparin Sodium (Lovenox) 30 mg SC DAILY [facility] PRN Reason: Protocol Last Admin: 10/11/17 08:00 Dose: 30 mg Cefazolin Sodium/Dextrose (Ancef Iv 1 Gm Duplex) 1 gm in 50 mls @ 50 mls/hr IVPB Q8@0430,1230,2030 [facility] PRN Reason: Protocol Last Admin: 10/11/17 03:50 Dose: 50 mls/hr Lactated Ringer's (Lactated Ringer's) 1,000 mls @ 100 mls/hr IV .Q10H [facility] Last Admin: 10/10/17 01:12 Dose: Not Given Latanoprost (Xalatan Opht) 1 drop OU HS [facility] Last Admin: 10/10/17 22:21 Dose: 1 drop Nifedipine (Procardia Xl) 60 mg PO DAILY [facility] Last Admin: 10/11/17 08:01 Dose: 60 mg Ondansetron HCl (Zofran Inj) 4 mg IVP Q6 PRN PRN Reason: Nausea/Vomiting Last Admin: 10/09/17 22:37 Dose: 4 mg Oxycodone/Acetaminophen (Percocet 5/325 Mg Tab) 1 tab PO Q4 PRN PRN Reason: Pain, moderate (4-7) Stop: 10/12/17 12:36 Last Admin: 10/11/17 09:09 Dose: 1 tab Timolol Maleate (Timoptic 0.25% Ophth Soln) 1 drop OD BID [facility] Last Admin: 10/11/17 08:02 Dose: 1 drop - Labs Labs: 10/10/17 06:05 10/10/17 06:05
--- NOTE | 2017-10-11 14:20 | CP.PCM.DIS ---
Provider - Provider Date of Admission: 10/09/17 20:02 Attending physician: Kaila Brewer DO Primary care physician: Geovanni Quarles III, MD Consults: Ortho Time Spent in preparation of Discharge (in minutes): 15 Diagnosis - Discharge Diagnosis (1) Osteoarthritis of left hip Status: Acute (2) Hypertension Status: Acute (3) Hyperlipidemia Status: Acute (4) Glaucoma Status: Acute (5) Cataract Status: Acute (6) Chronic kidney disease Status: Acute Hospital Course - Lab Results Lab Results: Most Recent Lab Values WBC 6.9 K/uL (4.8-10.8) 10/10/17 06:05 RBC 3.17 Mil/uL (4.40-5.90) L 10/10/17 06:05 Hgb 10.3 g/dL (12.0-18.0) L 10/10/17 06:05 Hct 31.2 % (35.0-51.0) L 10/10/17 06:05 MCV 98.6 fl (80.0-94.0) H 10/10/17 06:05 MCH 32.5 pg (27.0-31.0) H 10/10/17 06:05 MCHC 33.0 g/dL (33.0-37.0) 10/10/17 06:05 RDW 14.3 % (11.5-14.5) 10/10/17 06:05 Plt Count 128 K/uL (130-400) L 10/10/17 06:05 Sodium 138 mmol/l (132-148) 10/10/17 06:05 Potassium 4.6 MMOL/L (3.6-5.0) 10/10/17 06:05 Chloride 106 mmol/L (98-107) 10/10/17 06:05 Carbon Dioxide 25 mmol/L (22-30) 10/10/17 06:05 Anion Gap 11 (10-20) 10/10/17 06:05 BUN 31 mg/dl (9-20) H 10/10/17 06:05 Creatinine 1.9 mg/dL (0.8-1.5) H 10/10/17 06:05 Est GFR ( Amer) 43 10/10/17 06:05 Est GFR (Non-Af Amer) 35 10/10/17 06:05 Random Glucose 115 mg/dL (75-110) H 10/10/17 06:05 Calcium 8.2 mg/dL (8.4-10.2) L 10/10/17 06:05 Blood Type O POSITIVE 10/09/17 08:00 Blood Type Confirm O POSITIVE 10/09/17 08:50 Antibody Screen Negative 10/09/17 08:00 Crossmatch See Detail 10/09/17 08:00 BBK History Checked No verified bt 10/09/17 08:00 - Hospital Course Hospital Course: 59 year old male patient PMHx CAD, HTN, HLD, s/p tx with Harvoni, glaucoma, cataracts, BPH s/p TURP presented to [facility] for left total hip replacement with Dr. Quarles on 10/09/17 after sustaining a fall approximately 3 months ago. Patient was seein in [facility] and PAT labs revealed patient BUN = 27, Cr = 1.7 on 09/29/17 (on 08/03/17 BUN = 29, Cr = 1.9). BMP was taken at the hospital, and BUN = 31 , Cr = 1.9 signifying chronic kidney disease. Lisinopril was discharged due to increased creatinine. Patient underwent left total hip replacement with femoral neck osteotomy, arthrotomy/synovectomy, and release of iliopsoas tendon with uneventful postoperative course while in house. Patient participated with physical therapy well; PT recommending TCU for additional PT for strengthening and functional training. Discharge Exam - Head Exam Head Exam: ATRAUMATIC, NORMAL INSPECTION, NORMOCEPHALIC - Eye Exam Eye Exam: EOMI, Normal appearance, PERRL Pupil Exam: NORMAL ACCOMODATION, PERRL - ENT Exam ENT Exam: Mucous Membranes Dry, Normal Exam, Normal External Ear Exam - Neck Exam Neck exam: Normal Inspection - Respiratory Exam Respiratory Exam: Clear to PA & Lateral, NORMAL BREATHING PATTERN, UNREMARKABLE. absent: Rales, Rhonchi, Wheezes, Respiratory Distress - Cardiovascular Exam Cardiovascular Exam: REGULAR RHYTHM, +S1, +S2. absent: Diastolic murmur, Gallop , Irregular Rhythm, Rubs, Systolic Murmur - GI/Abdominal Exam GI & Abdominal Exam: Normal Bowel Sounds, Soft, Unremarkable. absent: Tenderness - Rectal Exam Rectal Exam: Deferred - Extremities Exam Extremities exam: normal capillary refill, tenderness, pedal pulses present Additional comments: Dressing to left hip appears clean/dry/intact with no strikethrough noted Compression stockings noted b/l legs. - Back Exam Back exam: NORMAL INSPECTION. absent: CVA tenderness (L), CVA tenderness (R), tenderness, vertebral tenderness - Neurological Exam Neurological exam: Alert, CN II-XII Intact, Oriented x3 - Psychiatric Exam Psychiatric exam: Normal Affect, Normal Mood - Skin Skin Exam: Dry, Intact, Normal Color, Warm Discharge Plan - Follow Up Plan Condition: GOOD Disposition: REHAB FACILITY/REHAB UNIT Patient education suggested?: Yes Instructions: Glaucoma (GEN), Osteoarthritis (DC), Osteoarthritis (GEN), Cataracts (GEN), Chronic Hypertension (GEN), Hyperlipidemia (GEN), Total Hip Replacement (DC), Total Hip Replacement (GEN) Additional Instructions: Follow up with Dr. Quarles 1 week Referrals: Geovanni Quarles III, MD [Primary Care Provider] -
--- NOTE | 2017-10-11 14:51 | CP.PCM.PN ---
Subjective - Date & Time of Evaluation Date of Evaluation: 10/11/17 Time of Evaluation: 13:30 - Subjective Subjective: MO CHEST PAIN OR SOB Objective - Vital Signs/Intake and Output Vital Signs (last 24 hours): Temp Pulse Resp BP Pulse Ox 99 F 84 20 127/85 100 10/11/17 07:53 10/11/17 08:02 10/11/17 07:53 10/11/17 08:02 10/11/17 07:53 - Medications Medications: Current Medications Acetaminophen (Tylenol 325mg Tab) 650 mg PO Q6 PRN PRN Reason: Pain, moderate (4-7) Last Admin: 10/11/17 03:49 Dose: 650 mg Alprazolam (Xanax) 1 mg PO DAILY [facility] Atorvastatin Calcium (Lipitor) 10 mg PO DAILY [facility] Last Admin: 10/11/17 08:03 Dose: 10 mg Bisacodyl (Dulcolax) 10 mg PO DAILY PRN PRN Reason: Constipation Brimonidine Tartrate (Alphagan 0.2% Opht) 1 drop OU BID [facility] Last Admin: 10/11/17 08:02 Dose: 1 unit Buspirone HCl (Buspar) 7.5 mg PO DAILY [facility] Carvedilol (Coreg) 6.25 mg PO BID [facility] Last Admin: 10/11/17 08:01 Dose: 6.25 mg Docusate Sodium (Colace) 100 mg PO BID [facility] Last Admin: 10/11/17 08:00 Dose: 100 mg Enoxaparin Sodium (Lovenox) 30 mg SC DAILY [facility] PRN Reason: Protocol Last Admin: 10/11/17 08:00 Dose: 30 mg Cefazolin Sodium/Dextrose (Ancef Iv 1 Gm Duplex) 1 gm in 50 mls @ 50 mls/hr IVPB Q8@0430,1230,2030 [facility] PRN Reason: Protocol Last Admin: 10/11/17 03:50 Dose: 50 mls/hr Lactated Ringer's (Lactated Ringer's) 1,000 mls @ 100 mls/hr IV .Q10H [facility] Last Admin: 10/10/17 01:12 Dose: Not Given Latanoprost (Xalatan Opht) 1 drop OU HS [facility] Last Admin: 10/10/17 22:21 Dose: 1 drop Nifedipine (Procardia Xl) 60 mg PO DAILY [facility] Last Admin: 10/11/17 08:01 Dose: 60 mg Ondansetron HCl (Zofran Inj) 4 mg IVP Q6 PRN PRN Reason: Nausea/Vomiting Last Admin: 10/09/17 22:37 Dose: 4 mg Oxycodone/Acetaminophen (Percocet 5/325 Mg Tab) 1 tab PO Q4 PRN PRN Reason: Pain, moderate (4-7) Stop: 10/12/17 12:36 Last Admin: 10/11/17 09:09 Dose: 1 tab Timolol Maleate (Timoptic 0.25% Oph Soln) 1 drop OD BID [facility] Last Admin: 10/11/17 08:02 Dose: 1 drop - Labs Labs: 10/10/17 06:05 10/10/17 06:05 - Respiratory Exam Respiratory Exam: Clear to Ausculation Bilateral - Cardiovascular Exam Cardiovascular Exam: REGULAR RHYTHM, +S1, +S2 Assessment and Plan - Assessment and Plan (Free Text) Assessment: S/P LEFT THR HYPERTENSION HYPERLIPIDEMIA CRF, STAGE 3 Plan: CONTINUE CARVEDILOL, NIFEDIPINE, LOVENOX AND ATORVASTATIN FOR DISCHARGE FOR REHAB
[2017-10-11 16:08] VITALS: BP 127/82
== END 2017-10-11 16:38 | DRG 470 ==
LOC: H.OPSURG 07:31 → H.MEDSURG1 20:02
PROVIDERS: ADMIT Student in an Organized Health Care Education/Training Program; ATTEND Student in an Organized Health Care Education/Training Program
PROC: 3E0T33Z Introduction of Anti-inflammatory into Peripheral Nerves and Plexi, Percutaneous Approach (ICD-10-PCS; 2017-10-09)
PROC: 0SRB0JZ Replacement of Left Hip Joint with Synthetic Substitute, Open Approach (ICD-10-PCS; principal; 2017-10-09 10:15)
PROC: 3E0T3BZ Introduction of Anesthetic Agent into Peripheral Nerves and Plexi, Percutaneous Approach (ICD-10-PCS; 2017-10-09 10:15)
DX: M16.12 Unilateral primary osteoarthritis, left hip (principal); N18.3 Chronic kidney disease, stage 3 (moderate); I12.9 Hypertensive chronic kidney disease with stage 1 through stage 4 chronic kidney disease, or unspecified chronic kidney disease; M21.70 Unequal limb length (acquired), unspecified site; M65.852 Other synovitis and tenosynovitis, left thigh; I34.1 Nonrheumatic mitral (valve) prolapse; I25.10 Atherosclerotic heart disease of native coronary artery without angina pectoris; E78.5 Hyperlipidemia, unspecified; N40.0 Benign prostatic hyperplasia without lower urinary tract symptoms; H26.9 Unspecified cataract; H40.9 Unspecified glaucoma; Z87.81 Personal history of (healed) traumatic fracture; Z91.81 History of falling; Z87.891 Personal history of nicotine dependence; Z90.79 Acquired absence of other genital organ(s)

== ENCOUNTER 2017-10-11 14:38 | Inpatient (IN) | payer MEDICARE, MEDICAID ==
[2017-07-10 11:50] VITALS: BMI 28.5
[2017-10-11 16:56] VITALS: RESP 20
[2017-10-11] MEDS ORDERED: Bisacodyl 5mg EC Tab PO PRN (17:09)
[2017-10-11] MEDS ORDERED: Influenza Vaccine(65YR UP)/PF 180 MCG/0.5 ML SYRINGE IM ONE (21:00)
[2017-10-11] MEDS: Oxycodone/Acetaminophen 5/325 mg Tab PO PRN (21:26)
[2017-10-12 07:18] LABS: BASO % 0.3 % (0.0-2.0); EOS % 0.3 % (0.0-4.0); HEMATOCRIT 26.6 % (35.0-51.0); LYMPH # 0.6 K/uL (1.0-4.3); MEAN CELL VOLUME 98.4 fl (80.0-94.0); MEAN CORPUSCULAR HEMOGLOBIN 32.1 pg (27.0-31.0); MEAN CORPUSCULAR HGB CONC 32.7 g/dL (33.0-37.0); MEAN PLATELET VOLUME 9.7 fl (7.2-11.7); MONO # 0.6 K/uL (0.0-0.8); MONO % 8.9 % (0.0-10.0); NEUT # 5.9 K/uL (1.8-7.0); NEUT % 81.5 % (50.0-75.0); PLATELET COUNT 120 K/uL (130-400); RED CELL DISTRIBUTION WIDTH 13.6 % (11.5-14.5); WHITE BLOOD COUNT 7.2 K/uL (4.8-10.8)
[2017-10-12 07:37] LABS: CALCIUM 8.7 mg/dL (8.4-10.2); POTASSIUM 3.7 MMOL/L (3.6-5.0)
[2017-10-12] MEDS ORDERED: Sodium Chloride 3% for Inhalation 4 ML VIAL.NEB IH PRN (08:09)
[2017-10-12] MEDS ORDERED: Latanoprost 0.005% Opht SOUTION OU SCH (09:00)
[2017-10-12] MEDS: Oxycodone/Acetaminophen 5/325 mg Tab PO PRN ×3 (09:09→22:46)
[2017-10-12] MEDS: Enoxaparin 30 mg Syringe SC SCH (09:11)
[2017-10-12] MEDS: Brimonidine 0.2% 50 DROP/5 ML BOTTLE OU SCH ×2 (09:12→16:08)
[2017-10-12] MEDS: NIFEdipine 60 mg ER Tab PO SCH (09:13)
[2017-10-12] MEDS: Timolol 0.25% Ophth SOLN OU SCH ×2 (09:14→16:08)
--- NOTE | 2017-10-12 11:24 | CP.PCM.HP ---
History of Present Illness - History of Present Illness History of Present Illness: 67-year-old male with past medical history CAD, hypertension, hyperlipidemia, status post treatment with Harvoni in November 2014 for Hep C , glaucoma, cataracts, BPH status post TURP,former smoker underwent left THR by Dr. Quarles 10/09/17. Patient now transferred to [facility] for physical therapy. Complains of some hip and left ankle discomfort but overall pain is controlled. With some coughing spells with minimal sputum production.Had Tmax 101 last 12 hours. Denies any CP , chills ,SOB, calf tenderness, urinary sx or changes in bowel movements. ROS: per HPI, all other systems reviewed and negative by me Allergies ; Naproxen PMH: CAD, HTN, CKD, glaucoma, hyperlipidemia, status post treatment with Harvoni in November 2014 for Hepatitis C , glaucoma, cataracts, BPH status post TURP, s/p left THR Surgeries: cystoscopy orif olecranon TURP, left THR , TURP , cataract Family history : DENIES Social history ; Drinks every night, glass of wine, quit tobacco 1 year ago, former smoker 54 years more on than off appx 1 ppd Meds; see med rec Present on Admission - Present on Admission Any Indicators Present on Admission: No Review of Systems - Review of Systems All systems: reviewed and no additional remarkable complaints except Past Patient History - Past Medical History & Family History Past Medical History?: Yes - Past Social History Smoking Status: Former Smoker Chewing Tobacco Use: No Cigar Use: No Alcohol: Social Drugs: Denies Home Situation {Lives}: Alone Domestic Violence: Negative - CARDIAC Hx Cardiac Disorders: Yes Hx Hypercholesterolemia: Yes Hx Hypertension: Yes Other/Comment: mitral valve replacement - PULMONARY Hx Respiratory Disorders: No - NEUROLOGICAL Hx Neurological Disorder: No - HEENT Hx HEENT Problems: Yes Hx Cataracts: Yes Hx Glaucoma: Yes - RENAL Hx Chronic Kidney Disease: Yes - ENDOCRINE/METABOLIC Hx Endocrine Disorders: No Other/Comment: CKD stage 3 - HEMATOLOGICAL/ONCOLOGICAL Hx Blood Disorders: No Hx Blood Transfusions: No Hx Blood Transfusion Reaction: No Hx Hepatitis C: Yes Other/Comment: ETOH ABUSE;HX OF DRUG ABUSE - INTEGUMENTARY Hx Dermatological Problems: No - MUSCULOSKELETAL/RHEUMATOLOGICAL Hx Arthritis: Yes Hx Falls: Yes Hx Osteoarthritis: Yes - GASTROINTESTINAL Hx Gastrointestinal Disorders: No - GENITOURINARY/GYNECOLOGICAL Hx Genitourinary Disorders: No Hx Prostate Problems: Yes Other/Comment: BPH with turp - PSYCHIATRIC Hx Emotional Abuse: No Hx Physical Abuse: No Hx Substance Use: Yes - SURGICAL HISTORY Hx Surgeries: Yes Hx Orthopedic Surgery: (R tricep repair elbow 02/08/17) Other/Comment: RIGHT ELBOW SURGERY;LEFT SIDE OF FACE-RECONSTRUCTIVE SURGERY-1981 - ANESTHESIA Hx Anesthesia: Yes Hx Anesthesia Reactions: No Hx Malignant Hyperthermia: No Meds Allergies/Adverse Reactions: Allergies Allergy/AdvReac Type Severity Reaction Status Date / Time naproxen AdvReac ANGIOEDEMA Verified 10/11/17 16:52 Physical Exam - Constitutional Appears: Non-toxic, No Acute Distress - Head Exam Head Exam: ATRAUMATIC, NORMAL INSPECTION, NORMOCEPHALIC - Eye Exam Eye Exam: EOMI, Normal appearance, PERRL Pupil Exam: NORMAL ACCOMODATION - ENT Exam ENT Exam: Mucous Membranes Moist, Normal Exam - Neck Exam Neck exam: Positive for: Full Rom, Normal Inspection - Respiratory Exam Respiratory Exam: Clear to Auscultation Bilateral, NORMAL BREATHING PATTERN. absent: Accessory Muscle Use, Rales, Rhonchi, Wheezes - Cardiovascular Exam Cardiovascular Exam: REGULAR RHYTHM, RRR, +S1, +S2. absent: JVD - GI/Abdominal Exam GI & Abdominal Exam: Normal Bowel Sounds, Soft. absent: Distended, Guarding, Rebound, Tenderness - Rectal Exam Rectal Exam: Deferred - Extremities Exam Extremities exam: Positive for: normal capillary refill, pedal pulses present. Negative for: calf tenderness, pedal edema Additional comments: left hip surgical incision with acquacell dressing intact - Back Exam Back exam: NORMAL INSPECTION - Neurological Exam Neurological exam: Alert, CN II-XII Intact, Oriented x3, Reflexes Normal - Psychiatric Exam Psychiatric exam: Normal Affect, Normal Mood - Skin Skin Exam: Dry, Intact, Normal Color, Warm Results - Vital Signs Recent Vital Signs: Last Vital Signs Temp 98.6 F 10/12/17 08:12 Pulse 93 H 10/12/17 09:11 Resp 20 10/12/17 08:12 BP 145/84 10/12/17 09:13 Pulse Ox 97 10/12/17 08:12 - Labs Result Diagrams: 10/12/17 06:30 10/12/17 06:30 Labs: Laboratory Results - last 24 hr 10/12/17 10/12/17 06:30 06:30 WBC 7.2 RBC 2.70 L Hgb 8.7 L Hct 26.6 L MCV 98.4 H MCH 32.1 H MCHC 32.7 L RDW 13.6 Plt Count 120 L MPV 9.7 Neut % (Auto) 81.5 H Lymph % (Auto) 9.0 L [place] % (Auto) 8.9 Eos % (Auto) 0.3 Baso % (Auto) 0.3 Neut # 5.9 Lymph # 0.6 L [place] # 0.6 Eos # 0.0 Baso # 0.0 Sodium 138 Potassium 3.7 Chloride 105 Carbon Dioxide 25 Anion Gap 12 BUN 22 H Creatinine 1.6 H Est GFR ( Amer) 52 Est GFR (Non-Af Amer) 43 Random Glucose 108 Calcium 8.7 Assessment & Plan - Assessment and Plan (Free Text) Assessment: 67-year-old male with past medical history CAD, hypertension, hyperlipidemia, status post treatment with Harvoni in November 2014 for Hep C , glaucoma, cataracts, BPH status post TURP,former smoker underwent left THR by Dr. Quarles 10/09/17. Patient now transferred to [facility] for physical therapy. Complains of some hip and left ankle discomfort but overall pain is controlled. With some coughing spells with minimal sputum production.Had Tmax 101 last 12 hours. Denies any CP , chills ,SOB, calf tenderness, urinary sx or changes in bowel movements. 1. Osteoarthritis left hip s/p left THR Failed conservative management Left THR with Dr. Quarles , following Pain management with Percoset Received Ancef 1g q8 total 3 dose prophylactically Continue PT/OT Continue incentive spirometer every hour 2.Acute blood loss anemia Hgb dropped from 10.7 ---8.7 started Ferrous sulfate 3. Fever unclear etiology Tmax 101 last 12 hours, normal WBC Patient is ex smoker and quit 1 year ago and has some cough with sputum production Will check CXR continue incentive spirometry No need for antibiotics for now Denies urinary symptoms , no calf tenderness and he is on lovenox for DVt prophylaxis 4. Thrombocytopenia most likely chronic , plt 120 K patient has history of hep C treated with harvoni Monitor for now 5. MARCIE on CKD stage III Creatinine improved from 1.9 -- 1.6 , GFR 52 discontinued Lisinopril monitor closely 6. Hypertension Continue Coreg and Nifedipine d/c lisinopril ue to MARCIE 7. Hyperlipidemia Continue Lipitor 8. DVT prophylaxis VTE prophylaxis per orthopedic service Lovenox SCDs 9.Glaucoma and cataracts eye drops 10. Anxiety on xanax PRN
[2017-10-12 11:54] LABS: EOSINOPHIL 1 % (0-7); NEUTROPHIL 83 % (42-75); TOTAL CELLS COUNTED 100
--- NOTE | 2017-10-12 15:29 | RAD ---
HISTORY: cough with fever COMPARISON: No prior. TECHNIQUE: Chest PA and lateral FINDINGS: LUNGS: No active pulmonary disease. PLEURA: No significant pleural effusion identified. No pneumothorax apparent. CARDIOVASCULAR: No radiographic findings to suggest acute or significant cardiovascular disease. OSSEOUS STRUCTURES: No significant abnormalities. VISUALIZED UPPER ABDOMEN: Distended stomach, otherwise unremarkable. OTHER FINDINGS: None. IMPRESSION: No active disease.
[2017-10-12] MEDS: guaiFENesin 100 mg/5 ml Syrup UD PO PRN ×2 (15:56→22:44)
[2017-10-12] MEDS: Latanoprost 0.005% Opht SOUTION OU SCH (21:02)
[2017-10-12] MEDS: Benzocaine/Menthol (Cepacol) Lozenge PO PRN (22:52)
[2017-10-13] MEDS: Enoxaparin 30 mg Syringe SC SCH (09:17)
[2017-10-13] MEDS: NIFEdipine 60 mg ER Tab PO SCH (09:17)
[2017-10-13] MEDS: Timolol 0.25% Ophth SOLN OU SCH ×2 (09:18→16:58)
[2017-10-13] MEDS: Brimonidine 0.2% 50 DROP/5 ML BOTTLE OU SCH ×2 (09:18→16:58)
[2017-10-13] MEDS: Oxycodone/Acetaminophen 5/325 mg Tab PO PRN ×2 (15:34→21:07)
--- NOTE | 2017-10-13 15:37 | CP.PCM.CON ---
History of Present Illness - History of Present Illness History of Present Illness: 67 year old male with righ ttotal hip replacement by Dr Quarles, also with CAD, HTN, hyperlipidemia, glaucoma Review of Systems - Musculoskeletal Musculoskeletal: Abnormal Gait, Limited Range of Motion, Stiffness Past Patient History - Past Medical History & Family History Past Medical History?: Yes - Past Social History Smoking Status: Former Smoker Chewing Tobacco Use: No Cigar Use: No Alcohol: Social Drugs: Denies Home Situation {Lives}: Alone Domestic Violence: Negative - CARDIAC Hx Cardiac Disorders: Yes Hx Hypercholesterolemia: Yes Hx Hypertension: Yes Other/Comment: mitral valve replacement - PULMONARY Hx Respiratory Disorders: No - NEUROLOGICAL Hx Neurological Disorder: No - HEENT Hx HEENT Problems: Yes Hx Cataracts: Yes Hx Glaucoma: Yes - RENAL Hx Chronic Kidney Disease: Yes - ENDOCRINE/METABOLIC Hx Endocrine Disorders: No Other/Comment: CKD stage 3 - HEMATOLOGICAL/ONCOLOGICAL Hx Blood Disorders: No Hx Blood Transfusions: No Hx Blood Transfusion Reaction: No Hx Hepatitis C: Yes Other/Comment: ETOH ABUSE;HX OF DRUG ABUSE - INTEGUMENTARY Hx Dermatological Problems: No - MUSCULOSKELETAL/RHEUMATOLOGICAL Hx Arthritis: Yes Hx Falls: Yes Hx Osteoarthritis: Yes - GASTROINTESTINAL Hx Gastrointestinal Disorders: No - GENITOURINARY/GYNECOLOGICAL Hx Genitourinary Disorders: No Hx Prostate Problems: Yes Other/Comment: BPH with turp - PSYCHIATRIC Hx Emotional Abuse: No Hx Physical Abuse: No Hx Substance Use: Yes - SURGICAL HISTORY Hx Surgeries: Yes Hx Orthopedic Surgery: (R tricep repair elbow 02/08/17) Other/Comment: RIGHT ELBOW SURGERY;LEFT SIDE OF FACE-RECONSTRUCTIVE SURGERY-1981 - ANESTHESIA Hx Anesthesia: Yes Hx Anesthesia Reactions: No Hx Malignant Hyperthermia: No Meds Allergies/Adverse Reactions: Allergies Allergy/AdvReac Type Severity Reaction Status Date / Time naproxen AdvReac ANGIOEDEMA Verified 10/11/17 16:52 - Medications Medications: Current Medications Acetaminophen (Tylenol 325mg Tab) 650 mg PO Q6 PRN PRN Reason: Pain, moderate (4-7) Acetaminophen (Tylenol 325mg Tab) 650 mg PO Q4 PRN PRN Reason: Fever >100.4 F Last Admin: 10/11/17 20:31 Dose: 650 mg Alprazolam (Xanax) 2 mg PO DAILY [facility] Last Admin: 10/13/17 09:18 Dose: 2 mg Atorvastatin Calcium (Lipitor) 10 mg PO DAILY@2100 [facility] Benzocaine/Menthol (Cepacol Sore Throat) 1 zayra PO Q2 PRN PRN Reason: Sore Throat Last Admin: 10/12/17 22:52 Dose: 1 zayra Bisacodyl (Dulcolax) 10 mg PO DAILY PRN PRN Reason: Constipation Brimonidine Tartrate (Alphagan 0.2% Opht) 1 drop OU BID [facility] Last Admin: 10/13/17 09:18 Dose: 1 drop Buspirone HCl (Buspar) 7.5 mg PO DAILY [facility] Last Admin: 10/13/17 09:17 Dose: 7.5 mg Carvedilol (Coreg) 6.25 mg PO BID [facility] Last Admin: 10/13/17 09:18 Dose: 6.25 mg Docusate Sodium (Colace) 100 mg PO BID [facility] Last Admin: 10/13/17 09:17 Dose: 100 mg Enoxaparin Sodium (Lovenox) 30 mg SC DAILY [facility] PRN Reason: Protocol Last Admin: 10/13/17 09:17 Dose: 30 mg Ferrous Sulfate (Feosol) 325 mg PO BID [facility] Last Admin: 10/13/17 09:17 Dose: 325 mg Guaifenesin (Robitussin) 100 mg PO Q6 PRN PRN Reason: Cough Last Admin: 10/12/17 22:44 Dose: 100 mg Latanoprost (Xalatan Opht) 1 drop OU HS [facility] Last Admin: 10/12/17 21:02 Dose: 1 drop Nifedipine (Procardia Xl) 60 mg PO DAILY [facility] Last Admin: 10/13/17 09:17 Dose: 60 mg Oxycodone/Acetaminophen (Percocet 5/325 Mg Tab) 1 tab PO Q4 PRN PRN Reason: Pain, moderate (4-7) Stop: 10/14/17 17:10 Last Admin: 10/12/17 22:46 Dose: 1 tab Timolol Maleate (Timoptic 0.25% Ophth Soln) 1 drop OU BID [facility] Last Admin: 10/13/17 09:18 Dose: 1 drop Physical Exam - Head Exam Head Exam: ATRAUMATIC, NORMAL INSPECTION, NORMOCEPHALIC - Eye Exam Eye Exam: EOMI, Normal appearance, PERRL Pupil Exam: NORMAL ACCOMODATION - ENT Exam ENT Exam: Mucous Membranes Moist, Normal Exam - Neck Exam Neck exam: Positive for: Normal Inspection - Respiratory Exam Respiratory Exam: NORMAL BREATHING PATTERN - Cardiovascular Exam Cardiovascular Exam: REGULAR RHYTHM - GI/Abdominal Exam GI & Abdominal Exam: Normal Bowel Sounds - Rectal Exam Rectal Exam: NORMAL INSPECTION - Exam External exam: NORMAL EXTERNAL EXAM - Extremities Exam Extremities exam: Positive for: normal inspection Additional comments: right leg weakness , decreased strength status post surgery - Back Exam Back exam: NORMAL INSPECTION - Neurological Exam Neurological exam: Alert, CN II-XII Intact - Psychiatric Exam Psychiatric exam: Normal Affect, Normal Mood - Skin Skin Exam: Dry, Intact Results - Vital Signs Recent Vital Signs: Last Vital Signs Temp 98.8 F 10/13/17 08:10 Pulse 91 H 10/13/17 09:18 Resp 20 10/13/17 08:10 BP 150/80 10/13/17 09:18 Pulse Ox 97 10/13/17 08:10 - Labs Result Diagrams: 10/12/17 06:30 10/12/17 06:30 Assessment & Plan (1) Cataract Status: Acute (2) Chronic kidney disease Status: Acute (3) Glaucoma Status: Acute (4) Hyperlipidemia Status: Acute (5) Hypertension Status: Acute (6) Osteoarthritis of left hip Assessment and Plan: ri8t hip replacemnt plan for physical, occupational, rec therapy for rrange of motion, strenghtening transfers and gait training Status: Acute
--- NOTE | 2017-10-13 15:40 | CP.PCM.PN ---
Subjective - Date & Time of Evaluation Date of Evaluation: 10/13/17 Time of Evaluation: 14:00 - Subjective Subjective: patinet with right leg weakness no complaints of pain Objective - Vital Signs/Intake and Output Vital Signs (last 24 hours): Temp Pulse Resp BP Pulse Ox 98.8 F 91 H 20 150/80 97 10/13/17 08:10 10/13/17 09:18 10/13/17 08:10 10/13/17 09:18 10/13/17 08:10 - Medications Medications: Current Medications Acetaminophen (Tylenol 325mg Tab) 650 mg PO Q6 PRN PRN Reason: Pain, moderate (4-7) Acetaminophen (Tylenol 325mg Tab) 650 mg PO Q4 PRN PRN Reason: Fever >100.4 F Last Admin: 10/11/17 20:31 Dose: 650 mg Alprazolam (Xanax) 2 mg PO DAILY [facility] Last Admin: 10/13/17 09:18 Dose: 2 mg Atorvastatin Calcium (Lipitor) 10 mg PO DAILY@2100 [facility] Benzocaine/Menthol (Cepacol Sore Throat) 1 zayra PO Q2 PRN PRN Reason: Sore Throat Last Admin: 10/12/17 22:52 Dose: 1 zayra Bisacodyl (Dulcolax) 10 mg PO DAILY PRN PRN Reason: Constipation Brimonidine Tartrate (Alphagan 0.2% Opht) 1 drop OU BID [facility] Last Admin: 10/13/17 09:18 Dose: 1 drop Buspirone HCl (Buspar) 7.5 mg PO DAILY [facility] Last Admin: 10/13/17 09:17 Dose: 7.5 mg Carvedilol (Coreg) 6.25 mg PO BID [facility] Last Admin: 10/13/17 09:18 Dose: 6.25 mg Docusate Sodium (Colace) 100 mg PO BID [facility] Last Admin: 10/13/17 09:17 Dose: 100 mg Enoxaparin Sodium (Lovenox) 30 mg SC DAILY [facility] PRN Reason: Protocol Last Admin: 10/13/17 09:17 Dose: 30 mg Ferrous Sulfate (Feosol) 325 mg PO BID [facility] Last Admin: 10/13/17 09:17 Dose: 325 mg Guaifenesin (Robitussin) 100 mg PO Q6 PRN PRN Reason: Cough Last Admin: 10/12/17 22:44 Dose: 100 mg Latanoprost (Xalatan Opht) 1 drop OU HS [facility] Last Admin: 10/12/17 21:02 Dose: 1 drop Nifedipine (Procardia Xl) 60 mg PO DAILY [facility] Last Admin: 10/13/17 09:17 Dose: 60 mg Oxycodone/Acetaminophen (Percocet 5/325 Mg Tab) 1 tab PO Q4 PRN PRN Reason: Pain, moderate (4-7) Stop: 10/14/17 17:10 Last Admin: 10/13/17 15:34 Dose: 1 tab Timolol Maleate (Timoptic 0.25% Ophth Soln) 1 drop OU BID [facility] Last Admin: 10/13/17 09:18 Dose: 1 drop - Labs Labs: 10/12/17 06:30 10/12/17 06:30 - Head Exam Head Exam: ATRAUMATIC, NORMAL INSPECTION, NORMOCEPHALIC - Eye Exam Eye Exam: EOMI, Normal appearance, PERRL Pupil Exam: NORMAL ACCOMODATION - ENT Exam ENT Exam: Mucous Membranes Moist, Normal Exam - Neck Exam Neck Exam: Normal Inspection - Respiratory Exam Respiratory Exam: Clear to Ausculation Bilateral, NORMAL BREATHING PATTERN - Cardiovascular Exam Cardiovascular Exam: REGULAR RHYTHM - GI/Abdominal Exam GI & Abdominal Exam: Soft, Normal Bowel Sounds - Rectal Exam Rectal Exam: NORMAL INSPECTION - Exam External exam: NORMAL EXTERNAL EXAM - Extremities Exam Extremities Exam: Normal Capillary Refill, Normal Inspection - Back Exam Back Exam: NORMAL INSPECTION - Neurological Exam Neurological Exam: Alert, Awake Neuro motor strength exam: Left Upper Extremity: 4, Right Upper Extremity: 4, Left Lower Extremity: 4, Right Lower Extremity: 3 - Psychiatric Exam Psychiatric exam: Normal Affect, Normal Mood - Skin Skin Exam: Dry, Intact Assessment and Plan (1) Cataract Status: Acute (2) Chronic kidney disease Status: Acute (3) Glaucoma Status: Acute (4) Hyperlipidemia Status: Acute (5) Hypertension Status: Acute (6) Osteoarthritis of left hip Assessment & Plan: right hip replacement, plan for PT, OT REC THERAPY Status: Acute
--- NOTE | 2017-10-13 18:01 | CP.PCM.PN ---
Subjective - Date & Time of Evaluation Date of Evaluation: 10/13/17 Time of Evaluation: 13:30 - Subjective Subjective: Patient seen and examined. hemodynamically stable, afebrile. Complaining of pain to medial aspect of his left ankle especially with PT. Denies any calf tenderness. Objective - Vital Signs/Intake and Output Vital Signs (last 24 hours): Temp Pulse Resp BP Pulse Ox 98.2 F 90 20 121/70 99 10/13/17 16:55 10/13/17 16:59 10/13/17 16:55 10/13/17 16:59 10/13/17 16:55 - Medications Medications: Current Medications Acetaminophen (Tylenol 325mg Tab) 650 mg PO Q6 PRN PRN Reason: Pain, moderate (4-7) Acetaminophen (Tylenol 325mg Tab) 650 mg PO Q4 PRN PRN Reason: Fever >100.4 F Last Admin: 10/11/17 20:31 Dose: 650 mg Alprazolam (Xanax) 2 mg PO DAILY [facility] Last Admin: 10/13/17 09:18 Dose: 2 mg Atorvastatin Calcium (Lipitor) 10 mg PO DAILY@2100 [facility] Benzocaine/Menthol (Cepacol Sore Throat) 1 zayra PO Q2 PRN PRN Reason: Sore Throat Last Admin: 10/12/17 22:52 Dose: 1 zayra Bisacodyl (Dulcolax) 10 mg PO DAILY PRN PRN Reason: Constipation Brimonidine Tartrate (Alphagan 0.2% Opht) 1 drop OU BID [facility] Last Admin: 10/13/17 16:58 Dose: 1 drop Buspirone HCl (Buspar) 7.5 mg PO DAILY [facility] Last Admin: 10/13/17 09:17 Dose: 7.5 mg Carvedilol (Coreg) 6.25 mg PO BID [facility] Last Admin: 10/13/17 16:59 Dose: 6.25 mg Docusate Sodium (Colace) 100 mg PO BID [facility] Last Admin: 10/13/17 16:58 Dose: 100 mg Enoxaparin Sodium (Lovenox) 30 mg SC DAILY [facility] PRN Reason: Protocol Last Admin: 10/13/17 09:17 Dose: 30 mg Ferrous Sulfate (Feosol) 325 mg PO BID [facility] Last Admin: 10/13/17 16:59 Dose: 325 mg Guaifenesin (Robitussin) 100 mg PO Q6 PRN PRN Reason: Cough Last Admin: 10/12/17 22:44 Dose: 100 mg Latanoprost (Xalatan Opht) 1 drop OU HS [facility] Last Admin: 10/12/17 21:02 Dose: 1 drop Nifedipine (Procardia Xl) 60 mg PO DAILY [facility] Last Admin: 10/13/17 09:17 Dose: 60 mg Oxycodone/Acetaminophen (Percocet 5/325 Mg Tab) 1 tab PO Q4 PRN PRN Reason: Pain, moderate (4-7) Stop: 10/14/17 17:10 Last Admin: 10/13/17 15:34 Dose: 1 tab Timolol Maleate (Timoptic 0.25% Ophth Soln) 1 drop OU BID [facility] Last Admin: 10/13/17 16:58 Dose: 1 drop - Labs Labs: 10/12/17 06:30 10/12/17 06:30 - Constitutional Appears: Non-toxic, No Acute Distress - Head Exam Head Exam: ATRAUMATIC, NORMAL INSPECTION, NORMOCEPHALIC - Eye Exam Eye Exam: EOMI, Normal appearance, PERRL Pupil Exam: NORMAL ACCOMODATION - ENT Exam ENT Exam: Mucous Membranes Moist, Normal Exam - Neck Exam Neck Exam: Full ROM, Normal Inspection - Respiratory Exam Respiratory Exam: Clear to Ausculation Bilateral, NORMAL BREATHING PATTERN. absent: Rales, Rhonchi, Wheezes - Cardiovascular Exam Cardiovascular Exam: REGULAR RHYTHM, RRR, +S1, +S2. absent: JVD - GI/Abdominal Exam GI & Abdominal Exam: Soft, Normal Bowel Sounds. absent: Distended, Guarding, Tenderness, Rebound - Rectal Exam Rectal Exam: Deferred - Extremities Exam Extremities Exam: Normal Capillary Refill, Normal Inspection Additional comments: left hip surgical incision with acquacell in place Pulses intact left ankle with no swelling or erythema - Back Exam Back Exam: NORMAL INSPECTION - Neurological Exam Neurological Exam: Alert, Awake, CN II-XII Intact, Oriented x3 - Psychiatric Exam Psychiatric exam: Normal Affect - Skin Skin Exam: Dry, Normal Color, Warm Assessment and Plan - Assessment and Plan (Free Text) Assessment: 67-year-old male with past medical history CAD, hypertension, hyperlipidemia, status post treatment with Harvoni in November 2014 for Hep C , glaucoma, cataracts, BPH status post TURP,former smoker underwent left THR by Dr. Quarles 10/09/17. Patient now transferred to [facility] for physical therapy. Complains of some hip and left ankle discomfort but overall pain is controlled. Hemodynamically stable, afebrile last 24 hours 1. Osteoarthritis left hip s/p left THR Failed conservative management Left THR with Dr. Quarles , following Pain management with Percoset Received Ancef 1g q8 total 3 dose prophylactically Continue PT/OT Continue incentive spirometry every hour Ice compresses to left ankle 2.Acute blood loss anemia Hgb dropped from 10.7 ---8.7 started Ferrous sulfate 3. Fever unclear etiology afebrile last 24 hours WBC normal , CXR with no infiltrate Patient is ex smoker and quit 1 year ago and has some cough with sputum production continue incentive spirometry No need for antibiotics for now Denies urinary symptoms , no calf tenderness and he is on lovenox for DVt prophylaxis 4. Thrombocytopenia most likely chronic , plt 120 K patient has history of hep C treated with [employer] Monitor for now 5. MARCIE on CKD stage III Creatinine improved from 1.9 -- 1.6 , GFR 52 discontinued Lisinopril monitor closely 6. Hypertension Continue Coreg and Nifedipine d/c lisinopril ue to MARCIE 7. Hyperlipidemia Continue Lipitor 8. DVT prophylaxis VTE prophylaxis per orthopedic service Lovenox SCDs 9.Glaucoma and cataracts eye drops 10. Anxiety on xanax PRN
[2017-10-13] MEDS: guaiFENesin 100 mg/5 ml Syrup UD PO PRN (19:29)
[2017-10-13] MEDS: Latanoprost 0.005% Opht SOUTION OU SCH (21:02)
[2017-10-14] MEDS: Oxycodone/Acetaminophen 5/325 mg Tab PO PRN ×3 (04:13→21:10)
[2017-10-14] MEDS: Benzocaine/Menthol (Cepacol) Lozenge PO PRN (04:18)
[2017-10-14] MEDS: Enoxaparin 30 mg Syringe SC SCH (08:19)
[2017-10-14] MEDS: Timolol 0.25% Ophth SOLN OU SCH ×2 (08:19→16:41)
[2017-10-14] MEDS: Brimonidine 0.2% 50 DROP/5 ML BOTTLE OU SCH ×2 (08:19→16:42)
[2017-10-14] MEDS: NIFEdipine 60 mg ER Tab PO SCH (08:22)
--- NOTE | 2017-10-14 20:12 | PN ---
DATE: PHYSIATRY PROGRESS NOTE SUBJECTIVE: The patient is a friendly, black male, 67 years old, admitted to Transitional Care Unit. The patient with status post left hip replacement, now for rehabilitation medicine. PHYSICAL EXAMINATION: VITAL SIGNS: Stable. NECK: Supple. CHEST: Symmetrical. HEART: Sounds S1 and S2. ABDOMEN: Area is benign. EXTREMITIES: No clubbing, cyanosis, or edema. Left hip is healing with a dressing in place. No calf tenderness. IMPRESSION: Left hip replacement, coronary artery disease, hypertension, hyperlipidemia, and glaucoma. PLAN: For pain management, physical and occupational therapy, full range of motion, strengthening, transverse ambulation, gait training, and monitor the incisional site. Maximilian Rodriguez MD
[2017-10-14] MEDS: guaiFENesin 100 mg/5 ml Syrup UD PO PRN (21:05)
[2017-10-14] MEDS: Latanoprost 0.005% Opht SOUTION OU SCH (21:06)
[2017-10-15] MEDS: Oxycodone/Acetaminophen 5/325 mg Tab PO PRN ×3 (05:42→23:31)
[2017-10-15] MEDS: Brimonidine 0.2% 50 DROP/5 ML BOTTLE OU SCH ×2 (08:44→16:56)
[2017-10-15] MEDS: Timolol 0.25% Ophth SOLN OU SCH ×2 (08:44→16:56)
[2017-10-15] MEDS: Enoxaparin 30 mg Syringe SC SCH (08:44)
[2017-10-15] MEDS: NIFEdipine 60 mg ER Tab PO SCH (08:45)
[2017-10-15] MEDS: Latanoprost 0.005% Opht SOUTION OU SCH (21:03)
[2017-10-16] MEDS: Oxycodone/Acetaminophen 5/325 mg Tab PO PRN ×4 (05:49→23:58)
[2017-10-16 06:15] LABS: HEMATOCRIT 26.2 % (35.0-51.0); MEAN CORPUSCULAR HEMOGLOBIN 32.6 pg (27.0-31.0); RED CELL DISTRIBUTION WIDTH 13.7 % (11.5-14.5); WHITE BLOOD COUNT 5.4 K/uL (4.8-10.8)
[2017-10-16 06:20] LABS: CALCIUM 8.9 mg/dL (8.4-10.2); POTASSIUM 4.5 MMOL/L (3.6-5.0)
[2017-10-16] MEDS: Brimonidine 0.2% 50 DROP/5 ML BOTTLE OU SCH ×2 (08:34→16:47)
[2017-10-16] MEDS: Timolol 0.25% Ophth SOLN OU SCH ×2 (08:34→16:47)
[2017-10-16] MEDS: Enoxaparin 30 mg Syringe SC SCH (08:35)
[2017-10-16] MEDS: NIFEdipine 60 mg ER Tab PO SCH (08:36)
[2017-10-16] MEDS ORDERED: Atrop/Hyos/Scop/PhenoB Elixir PO ONE (12:14)
--- NOTE | 2017-10-16 14:44 | CP.PCM.PN ---
Subjective - Date & Time of Evaluation Date of Evaluation: 10/16/17 Time of Evaluation: 12:30 - Subjective Subjective: no acute complaints at present , some left ankle pain due to boots Objective - Vital Signs/Intake and Output Vital Signs (last 24 hours): Temp Pulse Resp BP Pulse Ox 98.1 F 73 20 138/82 99 10/16/17 08:02 10/16/17 08:36 10/16/17 08:02 10/16/17 08:36 10/16/17 08:02 - Medications Medications: Current Medications Acetaminophen (Tylenol 325mg Tab) 650 mg PO Q6 PRN PRN Reason: Pain, moderate (4-7) Acetaminophen (Tylenol 325mg Tab) 650 mg PO Q4 PRN PRN Reason: Fever >100.4 F Last Admin: 10/11/17 20:31 Dose: 650 mg Alprazolam (Xanax) 1 mg PO BID [facility] Last Admin: 10/16/17 08:34 Dose: 1 mg Atorvastatin Calcium (Lipitor) 10 mg PO DAILY@2100 [facility] Last Admin: 10/15/17 21:02 Dose: 10 mg Benzocaine/Menthol (Cepacol Sore Throat) 1 zayra PO Q2 PRN PRN Reason: Sore Throat Last Admin: 10/14/17 04:18 Dose: 1 zayra Bisacodyl (Dulcolax) 10 mg PO DAILY PRN PRN Reason: Constipation Last Admin: 10/15/17 12:46 Dose: 10 mg Brimonidine Tartrate (Alphagan 0.2% Opht) 1 drop OU BID [facility] Last Admin: 10/16/17 08:34 Dose: 1 drop Buspirone HCl (Buspar) 7.5 mg PO DAILY [facility] Last Admin: 10/16/17 08:35 Dose: 7.5 mg Carvedilol (Coreg) 6.25 mg PO BID [facility] Last Admin: 10/16/17 08:35 Dose: 6.25 mg Docusate Sodium (Colace) 100 mg PO BID [facility] Last Admin: 10/16/17 08:35 Dose: 100 mg Enoxaparin Sodium (Lovenox) 30 mg SC DAILY [facility] PRN Reason: Protocol Last Admin: 10/16/17 08:35 Dose: 30 mg Ferrous Sulfate (Feosol) 325 mg PO BID [facility] Last Admin: 10/16/17 08:36 Dose: 325 mg Guaifenesin (Robitussin) 100 mg PO Q6 PRN PRN Reason: Cough Last Admin: 10/14/17 21:05 Dose: 100 mg Indomethacin (Indocin) 50 mg PO TID [facility] Last Admin: 10/16/17 12:14 Dose: 50 mg Latanoprost (Xalatan Opht) 1 drop OU HS [facility] Last Admin: 10/15/17 21:03 Dose: 1 drop Nifedipine (Procardia Xl) 60 mg PO DAILY [facility] Last Admin: 10/16/17 08:36 Dose: 60 mg Oxycodone/Acetaminophen (Percocet 5/325 Mg Tab) 1 tab PO Q4 PRN PRN Reason: Pain, severe (8-10) Stop: 10/17/17 18:40 Last Admin: 10/16/17 12:38 Dose: 1 tab Timolol Maleate (Timoptic 0.25% Ophth Soln) 1 drop OU BID [facility] Last Admin: 10/16/17 08:34 Dose: 1 drop - Labs Labs: 10/16/17 05:15 10/16/17 05:15 - Head Exam Head Exam: ATRAUMATIC, NORMAL INSPECTION, NORMOCEPHALIC - Eye Exam Eye Exam: EOMI, Normal appearance, PERRL Pupil Exam: NORMAL ACCOMODATION - ENT Exam ENT Exam: Mucous Membranes Moist, Normal Exam - Neck Exam Neck Exam: Normal Inspection - Respiratory Exam Respiratory Exam: NORMAL BREATHING PATTERN - Cardiovascular Exam Cardiovascular Exam: REGULAR RHYTHM - GI/Abdominal Exam GI & Abdominal Exam: Normal Bowel Sounds - Rectal Exam Rectal Exam: NORMAL INSPECTION - Exam External exam: NORMAL EXTERNAL EXAM - Extremities Exam Extremities Exam: Full ROM, Normal Capillary Refill - Back Exam Back Exam: NORMAL INSPECTION - Neurological Exam Neurological Exam: Alert, Awake Neuro motor strength exam: Left Upper Extremity: 4, Right Upper Extremity: 4, Left Lower Extremity: 3, Right Lower Extremity: 4 - Psychiatric Exam Psychiatric exam: Normal Affect, Normal Mood - Skin Skin Exam: Dry, Intact, Normal Color Assessment and Plan (1) Cataract Status: Acute (2) Chronic kidney disease Status: Acute (3) Glaucoma Status: Acute (4) Hyperlipidemia Status: Acute (5) Hypertension Status: Acute (6) Osteoarthritis of left hip Assessment & Plan: lef vijayp eric, monitor incisional area, PT OT therapy pain treatment Status: Acute
[2017-10-16] MEDS: Latanoprost 0.005% Opht SOUTION OU SCH (21:00)
[2017-10-17] MEDS: Oxycodone/Acetaminophen 5/325 mg Tab PO PRN ×2 (06:57→11:40)
[2017-10-17] MEDS: Brimonidine 0.2% 50 DROP/5 ML BOTTLE OU SCH ×2 (08:58→17:24)
[2017-10-17] MEDS: Timolol 0.25% Ophth SOLN OU SCH ×2 (08:58→17:23)
[2017-10-17] MEDS: Enoxaparin 30 mg Syringe SC SCH (09:00)
[2017-10-17] MEDS: NIFEdipine 60 mg ER Tab PO SCH (09:00)
--- NOTE | 2017-10-17 16:46 | CP.PCM.PN ---
Subjective - Date & Time of Evaluation Date of Evaluation: 10/17/17 Time of Evaluation: 13:00 - Subjective Subjective: Patient was seen and examined at bedside today. He reports feeling stronger today and is working with physical therapy. Denies cp/sob/weakness/fever/ headache. Objective - Vital Signs/Intake and Output Vital Signs (last 24 hours): Temp Pulse Resp BP Pulse Ox 98.1 F 79 20 140/85 100 10/17/17 16:36 10/17/17 16:36 10/17/17 16:36 10/17/17 16:36 10/17/17 16:36 - Medications Medications: Current Medications Acetaminophen (Tylenol 325mg Tab) 650 mg PO Q6 PRN PRN Reason: Pain, moderate (4-7) Acetaminophen (Tylenol 325mg Tab) 650 mg PO Q4 PRN PRN Reason: Fever >100.4 F Last Admin: 10/11/17 20:31 Dose: 650 mg Alprazolam (Xanax) 1 mg PO BID [facility] Last Admin: 10/17/17 09:03 Dose: 1 mg Atorvastatin Calcium (Lipitor) 10 mg PO DAILY@2100 [facility] Last Admin: 10/16/17 20:52 Dose: 10 mg Benzocaine/Menthol (Cepacol Sore Throat) 1 zayra PO Q2 PRN PRN Reason: Sore Throat Last Admin: 10/14/17 04:18 Dose: 1 zayra Bisacodyl (Dulcolax) 10 mg PO DAILY PRN PRN Reason: Constipation Last Admin: 10/15/17 12:46 Dose: 10 mg Brimonidine Tartrate (Alphagan 0.2% Opht) 1 drop OU BID [facility] Last Admin: 10/17/17 08:58 Dose: 1 drop Buspirone HCl (Buspar) 7.5 mg PO DAILY [facility] Last Admin: 10/17/17 09:01 Dose: 7.5 mg Carvedilol (Coreg) 6.25 mg PO BID [facility] Last Admin: 10/17/17 08:59 Dose: 6.25 mg Docusate Sodium (Colace) 100 mg PO BID [facility] Last Admin: 10/17/17 09:01 Dose: 100 mg Enoxaparin Sodium (Lovenox) 30 mg SC DAILY [facility] PRN Reason: Protocol Last Admin: 10/17/17 09:00 Dose: 30 mg Ferrous Sulfate (Feosol) 325 mg PO BID [facility] Last Admin: 10/17/17 09:01 Dose: 325 mg Guaifenesin (Robitussin) 100 mg PO Q6 PRN PRN Reason: Cough Last Admin: 10/14/17 21:05 Dose: 100 mg Indomethacin (Indocin) 50 mg PO TID [facility] Last Admin: 10/17/17 12:29 Dose: 50 mg Latanoprost (Xalatan Opht) 1 drop OU HS [facility] Last Admin: 10/16/17 21:00 Dose: 1 drop Nifedipine (Procardia Xl) 60 mg PO DAILY [facility] Last Admin: 10/17/17 09:00 Dose: 60 mg Oxycodone/Acetaminophen (Percocet 5/325 Mg Tab) 1 tab PO Q4 PRN PRN Reason: Pain, severe (8-10) Stop: 10/17/17 18:40 Last Admin: 10/17/17 11:40 Dose: 1 tab Timolol Maleate (Timoptic 0.25% Ophth Soln) 1 drop OU BID [facility] Last Admin: 10/17/17 08:58 Dose: 1 drop - Labs Labs: 10/16/17 05:15 10/16/17 05:15 - Additional Findings Additional findings: Constitutional- cooperative, awake, alert. Head- NCAT, PERRL Eye- PERRL, normal accommodation ENT- normal exam, MMM. Neck- normal inspection, supple, no JVD Respiratory- CTAB, no wheezes rales rhonchi Cardiovascular- RRR, +S1, +S2 no MRG GI/Abdominal- normal bowel sounds, soft, no mass, no hsm Skin- warm, dry Extremities Exam- normal capillary refill, normal inspection Neurological Exam- alert, stable gait Psych- normal mood, normal affect Assessment and Plan - Assessment and Plan (Free Text) Plan: Assessment: 67-year-old male with past medical history CAD, hypertension, hyperlipidemia, status post treatment with [facility] in November 2014 for Hep C , glaucoma, cataracts, BPH status post TURP,former smoker underwent left THR by Dr. Quarles 10/09/17. Patient now transferred to TCU for physical therapy. Continues to complain of some hip and left ankle discomfort but overall pain is controlled. Hemodynamically stable. 1. Osteoarthritis left hip s/p left THR Failed conservative management Left THR with Dr. Quarles , following Pain management with Percocet Received Ancef 1g q8 total 3 dose prophylactically Continue PT/OT Continue incentive spirometry every hour Ice compresses to left ankle Indocin initialized for pain by orthopedics as pt has hx of gout 2.Acute blood loss anemia Hgb dropped from 10.7 ---8.7 on 10/12; stabilized at 8.6 with repeat labwork on 10/16. started Ferrous sulfate 3. Thrombocytopenia most likely chronic , plt 120 K patient has history of hep C treated with [employer] [facility] Monitor for now 4. CKD stage III Patient's renal function at baseline Should be monitored as outpatient michele with Indomethacin initialized 5. Hypertension Continue Coreg and Nifedipine d/c lisinopril ue to MARCIE 6. Hyperlipidemia Continue Lipitor 7. DVT prophylaxis Lovenox until discharge, then will be on ASA 325 mg po BID as per orthopedics SCDs 8.Glaucoma and cataracts eye drops 11. Anxiety on xanax PRN
[2017-10-17] MEDS ORDERED: Influenza Vaccine 18yr & older 0.5 ML/45 MCG SYR IM ONE (21:14)
[2017-10-17] MEDS: Latanoprost 0.005% Opht SOUTION OU SCH (21:41)
[2017-10-18] MEDS ORDERED: Oxycodone/Acetaminophen 5/325 mg Tab PO PRN (05:16)
[2017-10-18 05:34] LABS: CALCIUM 9.3 mg/dL (8.4-10.2); POTASSIUM 4.1 MMOL/L (3.6-5.0)
[2017-10-18 08:10] VITALS: BP 140/80; PULSE 70; TEMP 98.2; O2SAT 100
[2017-10-18] MEDS ORDERED: Enoxaparin 30 mg Syringe SC SCH (09:00)
[2017-10-18] MEDS: NIFEdipine 60 mg ER Tab PO SCH (09:19)
[2017-10-18] MEDS: Timolol 0.25% Ophth SOLN OU SCH (09:24)
[2017-10-18] MEDS: Brimonidine 0.2% 50 DROP/5 ML BOTTLE OU SCH (09:25)
--- NOTE | 2017-10-18 09:27 | CP.PCM.DIS ---
<Aston Blanco - Last Filed: 10/18/17 12:56> Provider - Provider Date of Admission: 10/11/17 16:54 Attending physician: Kaila Brewer DO Primary care physician: Geovanni Quarles III, MD Time Spent in preparation of Discharge (in minutes): 30 Diagnosis - Discharge Diagnosis (1) Osteoarthritis of left hip Status: Acute Hospital Course - Lab Results Lab Results: Micro Results 10/12/17 15:02 Sputum Gram Stain - Final 10/12/17 15:02 Sputum Sputum Culture - Final NORMAL ORAL CAREN Most Recent Lab Values WBC 5.4 K/uL (4.8-10.8) 10/16/17 05:15 RBC 2.65 Mil/uL (4.40-5.90) L 10/16/17 05:15 Hgb 8.6 g/dL (12.0-18.0) L 10/16/17 05:15 Hct 26.2 % (35.0-51.0) L 10/16/17 05:15 MCV 99.0 fl (80.0-94.0) H 10/16/17 05:15 MCH 32.6 pg (27.0-31.0) H 10/16/17 05:15 MCHC 33.0 g/dL (33.0-37.0) 10/16/17 05:15 RDW 13.7 % (11.5-14.5) 10/16/17 05:15 Plt Count 262 K/uL (130-400) D 10/16/17 05:15 MPV 9.7 fl (7.2-11.7) 10/12/17 06:30 Neut % (Auto) 81.5 % (50.0-75.0) H 10/12/17 06:30 Lymph % (Auto) 9.0 % (20.0-40.0) L 10/12/17 06:30 Sevier % (Auto) 8.9 % (0.0-10.0) 10/12/17 06:30 Eos % (Auto) 0.3 % (0.0-4.0) 10/12/17 06:30 Baso % (Auto) 0.3 % (0.0-2.0) 10/12/17 06:30 Neut # 5.9 K/uL (1.8-7.0) 10/12/17 06:30 Lymph # 0.6 K/uL (1.0-4.3) L 10/12/17 06:30 Sevier # 0.6 K/uL (0.0-0.8) 10/12/17 06:30 Eos # 0.0 K/uL (0.0-0.7) 10/12/17 06:30 Baso # 0.0 K/uL (0.0-0.2) 10/12/17 06:30 Neutrophils % (Manual) 83 % (42-75) H 10/12/17 06:30 Lymphocytes % (Manual) 10 % (20-50) L 10/12/17 06:30 Monocytes % (Manual) 6 % (0-10) 10/12/17 06:30 Eosinophils % (Manual) 1 % (0-7) 10/12/17 06:30 Toxic Granulation Present 10/12/17 06:30 Platelet Estimate Slightly decreased (NORMAL) L 10/12/17 06:30 Hypochromasia (manual) Slight 10/12/17 06:30 Sodium 137 mmol/l (132-148) 10/18/17 05:00 Potassium 4.1 MMOL/L (3.6-5.0) 10/18/17 05:00 Chloride 105 mmol/L (98-107) 10/18/17 05:00 Carbon Dioxide 24 mmol/L (22-30) 10/18/17 05:00 Anion Gap 12 (10-20) 10/18/17 05:00 BUN 24 mg/dl (9-20) H 10/18/17 05:00 Creatinine 1.9 mg/dl (0.8-1.5) H 10/18/17 05:00 Est GFR ( Amer) 43 10/18/17 05:00 Est GFR (Non-Af Amer) 35 10/18/17 05:00 Random Glucose 98 mg/dL (75-110) 10/18/17 05:00 Uric Acid 6.5 mg/Dl (3.5-8.5) 10/14/17 12:20 Calcium 9.3 mg/dL (8.4-10.2) 10/18/17 05:00 - Hospital Course Hospital Course: 59-year-old male past medical history CAD, hypertension, hyperlipidemia, status post treatment with Harvoni in November 2014, glaucoma, cataracts, BPH status post TURP that was admitted for L total hip replacement on 10/09/2017, patient tolerated well the procedure, POD 10. Patient was transferred to TCU on 2016 for physical therapy, pain well controlled with medications. Patient asymptomatic at discharge time, discharged home safely with clearance and follow up instructions/visits with PMD and Dr Quarles in 2 weeks. Discharge Exam - Head Exam Head Exam: ATRAUMATIC, NORMAL INSPECTION, NORMOCEPHALIC - Eye Exam Eye Exam: EOMI, PERRL - Respiratory Exam Respiratory Exam: Clear to PA & Lateral, NORMAL BREATHING PATTERN. absent: Rales, Rhonchi, Wheezes - Cardiovascular Exam Cardiovascular Exam: REGULAR RHYTHM, +S1, +S2 - GI/Abdominal Exam GI & Abdominal Exam: Normal Bowel Sounds, Soft. absent: Distended, Tenderness - Neurological Exam Neurological exam: Alert, Oriented x3 - Skin Skin Exam: Dry, Warm Discharge Plan - Discharge Medications Prescriptions: ALPRAZolam [Xanax] 1 mg PO BID #60 tab Atorvastatin [Lipitor] 10 mg PO DAILY #30 tab Bisacodyl [Dulcolax] 10 mg PO DAILY PRN #30 ect PRN Reason: Constipation Brimonidine 0.2% [Alphagan 0.2% Opht] 1 drop OU BID #1 bottle Buspirone HCl 7.5 mg PO DAILY #30 tablet Carvedilol [Coreg] 6.25 mg PO BID #60 tab Docusate [Colace] 100 mg PO BID #60 cap Ferrous Sulfate [Feosol] 325 mg PO BID #60 tab Indomethacin [Indocin] 50 mg PO TID #24 cap Latanoprost 0.005% Opht [Xalatan Opht] 1 drop OU HS #1 bottle NIFEdipine ER [Procardia XL] 60 mg PO DAILY #30 ter oxyCODONE/Acetaminophen [Percocet 5/325 mg Tab] 1 tab PO Q4 PRN #30 tab PRN Reason: Pain, Severe (8-10) Timolol 0.25% Ophth [Timoptic 0.25% Ophth Soln] 1 drop OU BID #1 bottle - Follow Up Plan Condition: GOOD Disposition: HOME/ ROUTINE Additional Instructions: Keep appt to see Dr Quarles next wk ( Monday at 12:30) Home Health PT by [facility] arranged by WILLIAM ff up with PMD liang Referrals: Geovanni Quarles III, MD [Primary Care Provider] - <Kaylee Ingram - Last Filed: 10/18/17 15:23> Provider - Provider Date of Admission: 10/11/17 16:54 Attending physician: Kaila Brewer DO Primary care physician: Geovanni Quarles III, MD Hospital Course - Lab Results Lab Results: Micro Results 10/12/17 15:02 Sputum Gram Stain - Final 10/12/17 15:02 Sputum Sputum Culture - Final NORMAL ORAL CAREN Most Recent Lab Values WBC 5.4 K/uL (4.8-10.8) 10/16/17 05:15 RBC 2.65 Mil/uL (4.40-5.90) L 10/16/17 05:15 Hgb 8.6 g/dL (12.0-18.0) L 10/16/17 05:15 Hct 26.2 % (35.0-51.0) L 10/16/17 05:15 MCV 99.0 fl (80.0-94.0) H 10/16/17 05:15 MCH 32.6 pg (27.0-31.0) H 10/16/17 05:15 MCHC 33.0 g/dL (33.0-37.0) 10/16/17 05:15 RDW 13.7 % (11.5-14.5) 10/16/17 05:15 Plt Count 262 K/uL (130-400) D 10/16/17 05:15 MPV 9.7 fl (7.2-11.7) 10/12/17 06:30 Neut % (Auto) 81.5 % (50.0-75.0) H 10/12/17 06:30 Lymph % (Auto) 9.0 % (20.0-40.0) L 10/12/17 06:30 Sevier % (Auto) 8.9 % (0.0-10.0) 10/12/17 06:30 Eos % (Auto) 0.3 % (0.0-4.0) 10/12/17 06:30 Baso % (Auto) 0.3 % (0.0-2.0) 10/12/17 06:30 Neut # 5.9 K/uL (1.8-7.0) 10/12/17 06:30 Lymph # 0.6 K/uL (1.0-4.3) L 10/12/17 06:30 Sevier # 0.6 K/uL (0.0-0.8) 10/12/17 06:30 Eos # 0.0 K/uL (0.0-0.7) 10/12/17 06:30 Baso # 0.0 K/uL (0.0-0.2) 10/12/17 06:30 Neutrophils % (Manual) 83 % (42-75) H 10/12/17 06:30 Lymphocytes % (Manual) 10 % (20-50) L 10/12/17 06:30 Monocytes % (Manual) 6 % (0-10) 10/12/17 06:30 Eosinophils % (Manual) 1 % (0-7) 10/12/17 06:30 Toxic Granulation Present 10/12/17 06:30 Platelet Estimate Slightly decreased (NORMAL) L 10/12/17 06:30 Hypochromasia (manual) Slight 10/12/17 06:30 Sodium 137 mmol/l (132-148) 10/18/17 05:00 Potassium 4.1 MMOL/L (3.6-5.0) 10/18/17 05:00 Chloride 105 mmol/L (98-107) 10/18/17 05:00 Carbon Dioxide 24 mmol/L (22-30) 10/18/17 05:00 Anion Gap 12 (10-20) 10/18/17 05:00 BUN 24 mg/dl (9-20) H 10/18/17 05:00 Creatinine 1.9 mg/dl (0.8-1.5) H 10/18/17 05:00 Est GFR ( Amer) 43 10/18/17 05:00 Est GFR (Non-Af Amer) 35 10/18/17 05:00 Random Glucose 98 mg/dL (75-110) 10/18/17 05:00 Uric Acid 6.5 mg/Dl (3.5-8.5) 10/14/17 12:20 Calcium 9.3 mg/dL (8.4-10.2) 10/18/17 05:00 Attending/Attestation - Attestation I have personally seen and examined this patient.: Yes I have fully participated in the care of the patient.: Yes I have reviewed all pertinent clinical information, including history, physical exam and plan: Yes Notes (Text): 1 67-year-old male with past medical history CAD, hypertension, hyperlipidemia, Hep C , glaucoma, cataracts, BPH status post TURP,former smoker underwent left THR by Dr. Quarles 10/09/17. Patient was admitted to TCU for physical therapy. Completed PT/OT and doing well . Plan to d/c home for further Home PT. 1. Osteoarthritis left hip s/p left THR Left THR done by Dr. Quarles Pain management with Percocet Continue PT/OT Continue incentive spirometry every hour Ice compresses to left ankle 2.Acute blood loss anemia Hgb dropped from 10.7 ---8.7 started Ferrous sulfate 3. Fever unclear etiology afebrile last 24 hours WBC normal , CXR with no infiltrate Patient is ex smoker and quit 1 year ago and has some cough with sputum production continue incentive spirometry No need for antibiotics for now Denies urinary symptoms , no calf tenderness and he is on lovenox for DVt prophylaxis 4. Thrombocytopenia most likely chronic , plt 120 K patient has history of hep C treated with [employer] Monitor for now 5. MARCIE on CKD stage III discontinued Lisinopril monitor closely 6. Hypertension Continue Coreg and Nifedipine d/c lisinopril due to MARCIE 7. Hyperlipidemia Continue Lipitor 8. DVT prophylaxis VTE prophylaxis per orthopedic service Lovenox SCDs 9.Glaucoma and cataracts eye drops 10. Anxiety on xanax PRN
--- NOTE | 2017-10-18 09:40 | CP.PCM.PN ---
Subjective - Date & Time of Evaluation Date of Evaluation: 10/18/17 Time of Evaluation: 08:45 - Subjective Subjective: Ortho f/u Dr. Quarles Patient states pain is hip is controlled. He is tolerating PT well. Denies CP/ SOB/dizziness/numbness/tingling. Objective - Vital Signs/Intake and Output Vital Signs (last 24 hours): Temp Pulse Resp BP Pulse Ox 98.2 F 70 20 140/80 100 10/18/17 08:09 10/18/17 09:20 10/18/17 08:09 10/18/17 09:20 10/18/17 08:09 - Medications Medications: Current Medications Acetaminophen (Tylenol 325mg Tab) 650 mg PO Q6 PRN PRN Reason: Pain, moderate (4-7) Acetaminophen (Tylenol 325mg Tab) 650 mg PO Q4 PRN PRN Reason: Fever >100.4 F Last Admin: 10/11/17 20:31 Dose: 650 mg Alprazolam (Xanax) 1 mg PO BID [facility] Last Admin: 10/18/17 09:19 Dose: 1 mg Atorvastatin Calcium (Lipitor) 10 mg PO DAILY@2100 [facility] Last Admin: 10/17/17 21:41 Dose: 10 mg Benzocaine/Menthol (Cepacol Sore Throat) 1 zayra PO Q2 PRN PRN Reason: Sore Throat Last Admin: 10/14/17 04:18 Dose: 1 zayra Bisacodyl (Dulcolax) 10 mg PO DAILY PRN PRN Reason: Constipation Last Admin: 10/15/17 12:46 Dose: 10 mg Brimonidine Tartrate (Alphagan 0.2% Opht) 1 drop OU BID [facility] Last Admin: 10/18/17 09:25 Dose: 1 drop Buspirone HCl (Buspar) 7.5 mg PO DAILY [facility] Last Admin: 10/18/17 09:20 Dose: 7.5 mg Carvedilol (Coreg) 6.25 mg PO BID [facility] Last Admin: 10/18/17 09:20 Dose: 6.25 mg Docusate Sodium (Colace) 100 mg PO BID [facility] Last Admin: 10/18/17 09:19 Dose: 100 mg Enoxaparin Sodium (Lovenox) 30 mg SC DAILY [facility] PRN Reason: Protocol Last Admin: 10/18/17 09:24 Dose: 30 mg Ferrous Sulfate (Feosol) 325 mg PO BID [facility] Last Admin: 10/18/17 09:19 Dose: 325 mg Guaifenesin (Robitussin) 100 mg PO Q6 PRN PRN Reason: Cough Last Admin: 10/14/17 21:05 Dose: 100 mg Indomethacin (Indocin) 50 mg PO TID [facility] Last Admin: 10/18/17 09:19 Dose: 50 mg Latanoprost (Xalatan Opht) 1 drop OU HS [facility] Last Admin: 10/17/17 21:41 Dose: 1 drop Nifedipine (Procardia Xl) 60 mg PO DAILY [facility] Last Admin: 10/18/17 09:19 Dose: 60 mg Oxycodone/Acetaminophen (Percocet 5/325 Mg Tab) 1 tab PO Q6 PRN PRN Reason: Pain, moderate (4-7) Stop: 10/21/17 05:17 Last Admin: 10/18/17 05:42 Dose: 1 tab Timolol Maleate (Timoptic 0.25% Oph Soln) 1 drop OU BID [facility] Last Admin: 10/18/17 09:24 Dose: 1 drop - Labs Labs: 10/16/17 05:15 10/18/17 05:00 - Extremities Exam Additional comments: left hip incision well healed. Reading removed. No erythema, no drainage. Thigh soft. +ROM ankle/toes,sensation intact +DP/PT pulses calves soft NT neg homans Assessment and Plan (1) Osteoarthritis of left hip Assessment & Plan: s/p left THR -eden removed -ortho stable for d/c -f/u in office 10-14 days call for appointment -patient to find PT in plan -d/w Dr. Quarles, agrees with above Status: Acute
--- NOTE | 2017-10-20 08:35 | PN ---
PHYSIATRY PROGRESS NOTE SUBJECTIVE: The patient is feeling fine. No acute complaints at present. PHYSICAL EXAMINATION VITAL SIGNS: Stable. NECK: Supple. CHEST: Symmetrical. HEART: Sounds S1, S2. ABDOMEN: Area is benign. EXTREMITIES: No clubbing, cyanosis, or edema. IMPRESSION: Revision left hip replacement, coronary artery disease, hypertension, and hyperlipidemia. Patient discharge for today. Further services and followup with the medical and orthopedic physicians after discharge. Maximilian Rodriguez MD
== END 2017-10-18 09:15 | disposition home or self-care (01) | DRG 560 ==
LOC: H.TCU 16:54
PROVIDERS: ADMIT Student in an Organized Health Care Education/Training Program; ATTEND Student in an Organized Health Care Education/Training Program
PROC: F07L6FZ Therapeutic Exercise Treatment of Musculoskeletal System - Lower Back / Lower Extremity using Assistive, Adaptive, Supportive or Protective Equipment (ICD-10-PCS; principal; 2017-10-11)
PROC: F07Z9FZ Gait Training/Functional Ambulation Treatment using Assistive, Adaptive, Supportive or Protective Equipment (ICD-10-PCS; 2017-10-11)
PROC: F08Z4FZ Home Management Treatment using Assistive, Adaptive, Supportive or Protective Equipment (ICD-10-PCS; 2017-10-11)
PROC: 3E0234Z Introduction of Serum, Toxoid and Vaccine into Muscle, Percutaneous Approach (ICD-10-PCS; 2017-10-17)
DX: Z47.1 Aftercare following joint replacement surgery (principal); D62 Acute posthemorrhagic anemia; N17.9 Acute kidney failure, unspecified; N18.3 Chronic kidney disease, stage 3 (moderate); D69.59 Other secondary thrombocytopenia; I12.9 Hypertensive chronic kidney disease with stage 1 through stage 4 chronic kidney disease, or unspecified chronic kidney disease; Z96.642 Presence of left artificial hip joint; E78.5 Hyperlipidemia, unspecified; I25.10 Atherosclerotic heart disease of native coronary artery without angina pectoris; F10.10 Alcohol abuse, uncomplicated; F41.9 Anxiety disorder, unspecified; M16.12 Unilateral primary osteoarthritis, left hip; Z87.891 Personal history of nicotine dependence; H26.9 Unspecified cataract; H40.9 Unspecified glaucoma; Z86.19 Personal history of other infectious and parasitic diseases; Z95.2 Presence of prosthetic heart valve; Z23 Encounter for immunization